=== PATIENT | male | born 1950 | race American Indian/Alaskan Native ===

== ENCOUNTER 2018-01-18 16:10 | Emergency (ER) | payer SELFPAY ==
[2018-01-18 18:54] LABS: Basophils % (Auto) 0.3 % (0.0-1.8); Eosinophils # (Auto) 0.2 K/mm3 (0.0-0.4); Hemoglobin 11.7 gm/dl (11.8-15.2); Lymphocytes # (Auto) 1.5 K/mm3 (1.2-5.4); Lymphocytes % (Auto) 18.7 % (13.4-35.0); Mean Corpuscular HGB Conc 33 % (32-34); Mean Corpuscular Hemoglobin 31 pg (28-32); Mean Corpuscular Volume 92 fl (84-94); Monocytes # (Auto) 0.7 K/mm3 (0.0-0.8); Monocytes % (Auto) 8.9 % (0.0-7.3); Platelet Count 264 K/mm3 (140-440); Red Blood Count 3.83 M/mm3 (3.65-5.03); Red Cell Distribution Width 13.7 % (13.2-15.2)
[2018-01-18 19:09] LABS: BUN/Creatinine Ratio 13; Blood Urea Nitrogen 9 mg/dL (9-20); Calcium 8.9 mg/dL (8.4-10.2); Hemolysis Index 13
--- NOTE | 2018-01-18 19:21 | Emergency Department Report ---
ED General Adult HPI - General Chief complaint: Psych Stated complaint: AMS Time Seen by Provider: 01/18/18 19:14 Source: patient, EMS Mode of arrival: Ambulatory Limitations: No Limitations - History of Present Illness Initial comments: The patient presents from a personal long term for psychiatric evaluation. Per the staff at the personal long term the patient refuses to take his medications. Patient denies psychiatric history although he is on antipsychotic medication. Patient denies homicidal or suicidal ideation. Patient also denies auditory or visual hallucinations. -: Gradual Radiation: other (not applicable) Quality: other (not applicable) Consistency: other (not applicable) Worsens with: other (not applicable) Treatments Prior to Arrival: none - Related Data Allergies Allergy/AdvReac Type Severity Reaction Status Date / Time haloperidol [From Haldol] Allergy Unknown Verified 01/18/18 17:03 mustard Allergy Unknown Verified 01/18/18 17:03 risperidone [From Risperdal] Allergy Unknown Verified 01/18/18 17:03 ED Review of Systems ROS: Stated complaint: AMS Other details as noted in HPI Constitutional: denies: chills, fever Eyes: denies: eye pain, eye discharge, vision change ENT: denies: ear pain, throat pain Respiratory: denies: cough, shortness of breath, wheezing Cardiovascular: denies: chest pain, palpitations Endocrine: no symptoms reported Gastrointestinal: denies: abdominal pain, nausea, diarrhea Genitourinary: denies: urgency, dysuria Musculoskeletal: denies: back pain, joint swelling, arthralgia Skin: denies: rash, lesions Neurological: denies: headache, weakness, paresthesias Psychiatric: denies: anxiety, depression Hematological/Lymphatic: denies: easy bleeding, easy bruising ED Past Medical Hx - Past Medical History Previous Medical History?: Yes Hx Psychiatric Treatment: Yes - Surgical History Past Surgical History?: No - Social History Smoking Status: Never Smoker ED Physical Exam - General Limitations: No Limitations General appearance: alert, in no apparent distress - Head Head exam: Present: atraumatic, normocephalic - Eye Eye exam: Present: normal appearance - ENT ENT exam: Present: mucous membranes moist - Neck Neck exam: Present: normal inspection - Respiratory Respiratory exam: Present: normal lung sounds bilaterally. Absent: respiratory distress - Cardiovascular Cardiovascular Exam: Present: regular rate, normal rhythm. Absent: systolic murmur, diastolic murmur, rubs, gallop - GI/Abdominal GI/Abdominal exam: Present: soft, normal bowel sounds. Absent: distended, tenderness - Rectal Rectal exam: Present: deferred - Extremities Exam Extremities exam: Present: normal inspection - Back Exam Back exam: Present: normal inspection - Neurological Exam Neurological exam: Present: alert, oriented X3 - Psychiatric Psychiatric exam: Present: normal affect, normal mood - Skin Skin exam: Present: warm, dry, intact, normal color. Absent: rash ED Course Vital Signs 01/18/18 01/18/18 17:04 20:41 Temperature 97.8 F 98.5 F Pulse Rate 74 77 Respiratory 16 16 Rate Blood Pressure 156/94 Blood Pressure 168/94 [Right] O2 Sat by Pulse 100 98 Oximetry ED Medical Decision Making - Lab Data Result diagrams: 01/18/18 18:44 01/18/18 18:44 - Medical Decision Making Psychiatric evaluation done and patient will be referred to [facility] Critical care attestation.: If time is entered above; I have spent that time in minutes in the direct care of this critically ill patient, excluding procedure time. ED Disposition Clinical Impression: Psychosis Disposition: DC/TX-70 ANOTHER TYPE [facility]THCARE Is pt being admited?: No Does the pt Need Aspirin: No Condition: Stable Referrals: PRIMARY CARE, [Primary Care Provider] - 3-5 Days Time of Disposition: 02:48
--- NOTE | 2018-01-20 11:15 | Consultation ---
History of Present Illness - Reason for Consult Consult date: 01/20/18 Reason for consult: Mental Health Evaluation Requesting physician: JUDD RICHARDSON - Chief Complaint Chief complaint: 'There's feces in my food" - History of Present Psychiatric Illness 68 y.o. AA male presenting to the ER from his personal [facility] because he refuses to take his medication. Today the patient is calm, but tangent, delusional, disorganized, and paranoid during the assessment. He is adamant that he does not need psy medication. He stated "feces" being in his food and fear something may happen to him for some reason. He stated, "I will try my best to eat my meals." He could not logically explain what may happen to him when asked. The patient had to be redirected several time to keep him on topic. The patient is a poor historian at this time. Medications and Allergies Allergies Allergy/AdvReac Type Severity Reaction Status Date / Time haloperidol [From Haldol] Allergy Unknown Verified 01/18/18 17:03 mustard Allergy Unknown Verified 01/18/18 17:03 risperidone [From Risperdal] Allergy Unknown Verified 01/18/18 17:03 Home Medications Medication Instructions Recorded Confirmed Last Taken Type Unobtainable 01/19/18 01/19/18 Unknown History Past psychiatric history - Past Medical History Past Medical History: No medical history Past Surgical History: No surgical history - past Psychiatric treatment and history psychiatric treatment history: 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 He cannot confirm or deny a fam psy. - Social History Social history: other (Reside at a half-way) Mental Status Exam - Vital signs Last Vital Signs Temp 98.7 F 01/19/18 21:00 Pulse 87 01/19/18 21:00 Resp 18 01/19/18 21:00 BP 128/70 01/19/18 21:00 Pulse Ox 96 01/19/18 21:00 - Exam Narrative exam: MSE: Appearance: calm Behavior: regular eye contact Speech: regular rate and tone Mood: "okay" Affect: normal Thought Process: disorganized, tangential Thought Content: denies SI/HI's and AVH's, delusional, paranoid Motor Activity: ambulatory Cognition: A/O x 3 Insight: poor Judgment: poor Results Result Diagrams: 01/18/18 18:44 01/18/18 18:44 All other labs normal. Assessment and Plan Assessment and plan: Impression: Unspecified Psychosis. Today the patient is calm, but tangent, delusional, disorganized, and paranoid during the assessment. UDS has not been collected. DDx: Schizophrenia Paranoid Type, R/O Bipolar DO Recommendation/Plan: Continue 1013 with placement to inpatient psy services. Start Zyprexa Zydis 5 mg PO HS for psychosis. Discussed possible metabolic side effects of Zyprexa with patient. Encourage patient to eat his meals.
[2018-01-20 11:46] LABS: Bacteria,Urine 1+ /HPF (Negative); Bilirubin,Urine NEG (Negative); Blood,Urine NEG (Negative); Color,Urine Yellow (Yellow); Mucus,Urine 1+ /HPF; Urobilinogen,Urine < 2.0 mg/dL (<2.0)
[2018-01-20 11:56] LABS: Amphetamine Screen,Urine PRESUMPTIVE NEGATIVE; Benzodiazepines Screen,Urine PRESUMPTIVE NEGATIVE; Cannabinoid Screen,Urine PRESUMPTIVE NEGATIVE; Cocaine Screen,Urine PRESUMPTIVE NEGATIVE; Methadone Screen,Urine PRESUMPTIVE NEGATIVE; Opiate Screen,Urine PRESUMPTIVE NEGATIVE
--- NOTE | 2018-01-21 12:14 | Progress Note ---
Subjective - Reason for Consult Consult date: 01/21/18 Reason for consult: Psychiatry Follow-up - Chief Complaint Chief complaint: "Hi" 68 y.o. AA male presenting to the ER from his personal halfway because he refuses to take his medication. Today the patient is calm and cooperative during the assessment. He stated that he didn't eat his dinner, but ate his breakfast this morning. The patient is drinking fluids. He would not confirm or deny that there's feces still in his food when asked. He denies SI/HI's and AVH' s. No indications of side effects of his medications. Mental Status Exam - Vital signs Last Vital Signs Temp 98.3 F 01/20/18 20:49 Pulse 79 01/20/18 20:49 Resp 18 01/20/18 20:49 BP 126/60 01/20/18 20:49 Pulse Ox 98 01/20/18 13:34 - Exam Narrative exam: MSE: Appearance: calm, cooperative Behavior: regular eye contact Speech: regular rate and tone, hyper verbal Mood: "okay" Affect: normal Thought Process: tangential Thought Content: denies SI/HI's and AVH's, delusional, paranoid Motor Activity: ambulatory Cognition: A/O x 3 Insight: poor Judgment: poor Assessment and Plan Impression: Unspecified Psychosis. Today the patient is calm, but tangent, delusional, disorganized, and paranoid during the assessment. UDS is negative. DDx: Schizophrenia Paranoid Type, R/O Bipolar DO Recommendation/Plan: Continue 1013 with placement to inpatient psy services. Continue Zyprexa Zydis 5 mg PO HS for psychosis. Discussed possible metabolic side effects of Zyprexa with patient. Encourage patient to eat his meals.
[2018-01-22 09:14] VITALS: BP 132/83
== END 2018-01-22 19:58 | disposition other institution (70) ==
LOC: ED 16:10 → EEVIPCON 16:10 → ED 01-22 19:58
DX: F29 Unspecified psychosis not due to a substance or known physiological condition (principal); Z79.899 Other long term (current) drug therapy
CPT/HCPCS: 36415; 80048; 80307; 81001; 85025; 99285; G0480; 80320

== ENCOUNTER 2022-01-22 16:39 | Emergency (ER) | payer MEDICARE ==
[2022-01-22] MEDS ORDERED: ZIPRASIDONE MESYLATE 20 MG VIAL IM ONE (17:14)
[2022-01-22] MEDS ORDERED: diphenhydrAMINE 50 MG/ML VIAL IM ONE (17:14)
--- NOTE | 2022-01-22 17:19 | Emergency Department Report ---
ED Psych HPI - General Chief Complaint: Altered Mental Status Stated Complaint: AMS Time Seen by Provider: 01/22/22 17:10 Source: EMS Mode of arrival: Stretcher Limitations: Other - History of Present Illness Initial Comments: 72-year-old male with a past medical history of dementia and schizophrenia presents from [facility] for episode of aggression and combativeness as per staff. Patient is sleepy during my evaluation. In attempt to examine him he becomes aggressive. He is not speaking or answering questions. IM medications ordered for patient and staff safety. Med list not available for review. As per medical record patient was last seen in 2018 with a similar presentation - Related Data Home Medications Medication Instructions Recorded Confirmed Last Taken Benztropine [Cogentin] 1 mg PO BID 01/21/18 01/21/18 Unknown Cholecalciferol (Vitamin D3) 3,000 unit PO BID 01/21/18 01/21/18 Unknown [Vitamin D3 3,000 unit] Docusate Sodium [Colace CAP] 100 mg PO BID 01/21/18 01/21/18 Unknown Ferrous Sulfate [Iron 325 MG] 325 mg PO DAILY 01/21/18 01/21/18 Unknown [place] Carbonate [Eskalith] 450 mg PO QHS 01/21/18 01/21/18 Unknown OLANZapine [Zyprexa] 20 mg PO BID 01/21/18 01/21/18 Unknown Psyllium Seed (with Sugar) 3.4 gm PO DAILY 01/21/18 01/21/18 Unknown [Metamucil] Thiamine [Vitamin B-1] 100 mg PO DAILY 01/21/18 01/21/18 Unknown fluPHENAZine HCl [Prolixin] 20 mg PO QHS 01/21/18 01/21/18 Unknown fluPHENAZine decanoate (NF) 50 mg IM QWEEK 01/21/18 01/21/18 Unknown [Prolixin Decanoate] Allergies Allergy/AdvReac Type Severity Reaction Status Date / Time haloperidol [From Haldol] Allergy Unknown Verified 01/22/22 16:42 mustard Allergy Unknown Verified 01/22/22 16:42 risperidone [From Risperdal] Allergy Unknown Verified 01/22/22 16:42 ED Review of Systems ROS: Stated complaint: AMS Other details as noted in HPI Comment: All other systems reviewed and negative ED Past Medical Hx - Past Medical History Hx Psychiatric Treatment: Yes - Social History Smoking Status: Never Smoker - Medications Home Medications: Home Medications Medication Instructions Recorded Confirmed Last Taken Type Benztropine [Cogentin] 1 mg PO BID 01/21/18 01/21/18 Unknown History Cholecalciferol (Vitamin D3) 3,000 unit PO BID 01/21/18 01/21/18 Unknown History [Vitamin D3 3,000 unit] Docusate Sodium [Colace CAP] 100 mg PO BID 01/21/18 01/21/18 Unknown History Ferrous Sulfate [Iron 325 MG] 325 mg PO DAILY 01/21/18 01/21/18 Unknown History [place] Carbonate [Eskalith] 450 mg PO QHS 01/21/18 01/21/18 Unknown History OLANZapine [Zyprexa] 20 mg PO BID 01/21/18 01/21/18 Unknown History Psyllium Seed (with Sugar) 3.4 gm PO DAILY 01/21/18 01/21/18 Unknown History [Metamucil] Thiamine [Vitamin B-1] 100 mg PO DAILY 01/21/18 01/21/18 Unknown History fluPHENAZine HCl [Prolixin] 20 mg PO QHS 01/21/18 01/21/18 Unknown History fluPHENAZine decanoate (NF) 50 mg IM QWEEK 01/21/18 01/21/18 Unknown History [Prolixin Decanoate] ED Physical Exam - General Limitations: Altered Mental Status - Other Other exam information: General: No acute distress Head: Atraumatic Eyes: normal appearance ENT: Moist mucous membranes Neck: Normal appearance, no midline tenderness Chest: Clear to auscultation bilaterally CV: Regular rate and rhythm Abdomen: Soft, normal bowel sounds, nontender, nondistended, no rebound or guarding Back: Normal inspection Extremity: Normal inspection, full range of motion Neuro: Alert, does not follow questions, aggressive, moves all extremities equally Psych: resting, uncooperative when disturbed Skin: No rash ED Course Vital Signs 01/22/22 01/22/22 01/22/22 18:34 18:40 18:42 Pulse Rate 87 Respiratory 18 17 Rate Blood Pressure 148/82 [Left] O2 Sat by Pulse 100 98 98 Oximetry 01/22/22 19:54 Pulse Rate 82 Respiratory 18 Rate Blood Pressure 164/98 [Left] O2 Sat by Pulse 98 Oximetry - Reevaluation(s) Reevaluation #1: 01/22/22 21:43 pt is more cooperative now and agreeable to getting temp done ED Medical Decision Making - Lab Data Result diagrams: 01/22/22 19:40 01/22/22 19:40 Lab Results 01/22/22 01/22/22 01/22/22 Range/Units 19:40 19:40 19:40 WBC 6.0 (4.5-11.0) K/mm3 RBC 4.24 (3.65-5.03) M/mm3 Hgb 12.1 (11.8-15.2) gm/dl Hct 37.6 (35.5-45.6) % MCV 89 (84-94) fl MCH 29 (28-32) pg MCHC 32 (32-34) % RDW 15.5 H (13.2-15.2) % Plt Count 156 (140-440) K/mm3 Lymph % (Auto) 35.5 H (13.4-35.0) % [place] % (Auto) 11.0 H (0.0-7.3) % Eos % (Auto) 2.4 (0.0-4.3) % Baso % (Auto) 0.5 (0.0-1.8) % Lymph # (Auto) 2.1 (1.2-5.4) K/mm3 [place] # (Auto) 0.7 (0.0-0.8) K/mm3 Eos # (Auto) 0.1 (0.0-0.4) K/mm3 Baso # (Auto) 0.0 (0.0-0.1) K/mm3 Seg Neutrophils % 50.6 (40.0-70.0) % Seg Neutrophils # 3.1 (1.8-7.7) K/mm3 Sodium 138 (137-145) mmol/L Potassium 4.5 (3.6-5.0) mmol/L Chloride 102.4 (98-107) mmol/L Carbon Dioxide 24 (22-30) mmol/L Anion Gap 16 mmol/L BUN 16 (9-20) mg/dL Creatinine 0.9 (0.8-1.3) mg/dL Estimated GFR > 60 ml/min BUN/Creatinine Ratio 18 % Glucose 86 (75-100) mg/dL Calcium 9.5 (8.4-10.2) mg/dL Urine Color (Yellow) Urine Turbidity (Clear) Urine pH (5.0-7.0) Ur Specific [place] (1.003-1.030) Urine Protein (Negative) mg/dL Urine Glucose (UA) (Negative) mg/dL Urine Ketones (Negative) mg/dL Urine Blood (Negative) Urine Nitrite (Negative) Urine Bilirubin (Negative) Urine Urobilinogen (<2.0) mg/dL Ur Leukocyte Esterase (Negative) Urine WBC (Auto) (0.0-6.0) /HPF Urine RBC (Auto) (0.0-6.0) /HPF Urine Mucus /HPF Salicylates < 0.3 L (2.8-20.0) mg/dL Urine Opiates Screen Urine Methadone Screen Acetaminophen (10.0-30.0) ug/mL Ur Barbiturates Screen Ur Phencyclidine Scrn Ur Amphetamines Screen U Benzodiazepines Scrn [place] 0.1 (0.0-1.2) mmol/L Urine Cocaine Screen U Marijuana (THC) Screen Drugs of Abuse Note Plasma/Serum Alcohol (0-0.07) % 01/22/22 01/22/22 01/22/22 Range/Units 19:40 19:40 19:55 WBC (4.5-11.0) K/mm3 RBC (3.65-5.03) M/mm3 Hgb (11.8-15.2) gm/dl Hct (35.5-45.6) % MCV (84-94) fl MCH (28-32) pg MCHC (32-34) % RDW (13.2-15.2) % Plt Count (140-440) K/mm3 Lymph % (Auto) (13.4-35.0) % [place] % (Auto) (0.0-7.3) % Eos % (Auto) (0.0-4.3) % Baso % (Auto) (0.0-1.8) % Lymph # (Auto) (1.2-5.4) K/mm3 [place] # (Auto) (0.0-0.8) K/mm3 Eos # (Auto) (0.0-0.4) K/mm3 Baso # (Auto) (0.0-0.1) K/mm3 Seg Neutrophils % (40.0-70.0) % Seg Neutrophils # (1.8-7.7) K/mm3 Sodium (137-145) mmol/L Potassium (3.6-5.0) mmol/L Chloride (98-107) mmol/L Carbon Dioxide (22-30) mmol/L Anion Gap mmol/L BUN (9-20) mg/dL Creatinine (0.8-1.3) mg/dL Estimated GFR ml/min BUN/Creatinine Ratio % Glucose (75-100) mg/dL Calcium (8.4-10.2) mg/dL Urine Color Straw (Yellow) Urine Turbidity Clear (Clear) Urine pH 6.0 (5.0-7.0) Ur Specific [place] 1.010 (1.003-1.030) Urine Protein <15 mg/dl (Negative) mg/dL Urine Glucose (UA) Neg (Negative) mg/dL Urine Ketones Neg (Negative) mg/dL Urine Blood Neg (Negative) Urine Nitrite Neg (Negative) Urine Bilirubin Neg (Negative) Urine Urobilinogen < 2.0 (<2.0) mg/dL Ur Leukocyte Esterase Neg (Negative) Urine WBC (Auto) < 1.0 (0.0-6.0) /HPF Urine RBC (Auto) 1.0 (0.0-6.0) /HPF Urine Mucus Few /HPF Salicylates (2.8-20.0) mg/dL Urine Opiates Screen Urine Methadone Screen Acetaminophen 5.0 L (10.0-30.0) ug/mL Ur Barbiturates Screen Ur Phencyclidine Scrn Ur Amphetamines Screen U Benzodiazepines Scrn [place] (0.0-1.2) mmol/L Urine Cocaine Screen U Marijuana (THC) Screen Drugs of Abuse Note Plasma/Serum Alcohol < 0.01 (0-0.07) % 01/22/22 Range/Units 19:55 WBC (4.5-11.0) K/mm3 RBC (3.65-5.03) M/mm3 Hgb (11.8-15.2) gm/dl Hct (35.5-45.6) % MCV (84-94) fl MCH (28-32) pg MCHC (32-34) % RDW (13.2-15.2) % Plt Count (140-440) K/mm3 Lymph % (Auto) (13.4-35.0) % [place] % (Auto) (0.0-7.3) % Eos % (Auto) (0.0-4.3) % Baso % (Auto) (0.0-1.8) % Lymph # (Auto) (1.2-5.4) K/mm3 [place] # (Auto) (0.0-0.8) K/mm3 Eos # (Auto) (0.0-0.4) K/mm3 Baso # (Auto) (0.0-0.1) K/mm3 Seg Neutrophils % (40.0-70.0) % Seg Neutrophils # (1.8-7.7) K/mm3 Sodium (137-145) mmol/L Potassium (3.6-5.0) mmol/L Chloride (98-107) mmol/L Carbon Dioxide (22-30) mmol/L Anion Gap mmol/L BUN (9-20) mg/dL Creatinine (0.8-1.3) mg/dL Estimated GFR ml/min BUN/Creatinine Ratio % Glucose (75-100) mg/dL Calcium (8.4-10.2) mg/dL Urine Color (Yellow) Urine Turbidity (Clear) Urine pH (5.0-7.0) Ur Specific [place] (1.003-1.030) Urine Protein (Negative) mg/dL Urine Glucose (UA) (Negative) mg/dL Urine Ketones (Negative) mg/dL Urine Blood (Negative) Urine Nitrite (Negative) Urine Bilirubin (Negative) Urine Urobilinogen (<2.0) mg/dL Ur Leukocyte Esterase (Negative) Urine WBC (Auto) (0.0-6.0) /HPF Urine RBC (Auto) (0.0-6.0) /HPF Urine Mucus /HPF Salicylates (2.8-20.0) mg/dL Urine Opiates Screen Presumptive negative Urine Methadone Screen Presumptive negative Acetaminophen (10.0-30.0) ug/mL Ur Barbiturates Screen Presumptive negative Ur Phencyclidine Scrn Presumptive negative Ur Amphetamines Screen Presumptive negative U Benzodiazepines Scrn Presumptive negative [place] (0.0-1.2) mmol/L Urine Cocaine Screen Presumptive negative U Marijuana (THC) Screen Presumptive negative Drugs of Abuse Note Disclamer Plasma/Serum Alcohol (0-0.07) % - Medical Decision Making 72-year-old male with dementia and schizophrenia presents to the hospital with aggressive behavior. Labs, urine, and vital signs unremarkable. Patient required Geodon and Benadryl in the ED for cooperation. Patient will require mental health evaluation for possible [facility] psychiatric admission Critical Care Time: No Critical care attestation.: If time is entered above; I have spent that time in minutes in the direct care of this critically ill patient, excluding procedure time. ED Disposition Clinical Impression: Dementia, Schizophrenia, Aggressive behavior Disposition: [address] [place] [address] Is pt being admited?: No Condition: Stable
[2022-01-22 20:13] LABS: Basophils % (Auto) 0.5 % (0.0-1.8); Eosinophils # (Auto) 0.1 K/mm3 (0.0-0.4); Eosinophils % (Auto) 2.4 % (0.0-4.3); Hematocrit 37.6 % (35.5-45.6); Hemoglobin 12.1 gm/dl (11.8-15.2); Lymphocytes # (Auto) 2.1 K/mm3 (1.2-5.4); Lymphocytes % (Auto) 35.5 % (13.4-35.0); Mean Corpuscular HGB Conc 32 % (32-34); Mean Corpuscular Volume 89 fl (84-94); Monocytes # (Auto) 0.7 K/mm3 (0.0-0.8); Platelet Count 156 K/mm3 (140-440); Red Blood Count 4.24 M/mm3 (3.65-5.03); Red Cell Distribution Width 15.5 % (13.2-15.2)
[2022-01-22 20:26] LABS: BUN/Creatinine Ratio 18; Blood Urea Nitrogen 16 mg/dL (9-20); Calcium 9.5 mg/dL (8.4-10.2); Hemolysis Index 23
[2022-01-22 20:33] LABS: Bilirubin,Urine NEG (Negative); Blood,Urine NEG (Negative); Color,Urine Straw (Yellow); Mucus,Urine FEW /HPF; Protein,Urine <15 mg/dL mg/dL (Negative); Urobilinogen,Urine < 2.0 mg/dL (<2.0); WBC,Urine < 1.0 /HPF (0.0-6.0)
[2022-01-22 20:45] LABS: Amphetamine Screen,Urine PRESUMPTIVE NEGATIVE; Benzodiazepines Screen,Urine PRESUMPTIVE NEGATIVE; Cannabinoid Screen,Urine PRESUMPTIVE NEGATIVE; Cocaine Screen,Urine PRESUMPTIVE NEGATIVE; Methadone Screen,Urine PRESUMPTIVE NEGATIVE; Opiate Screen,Urine PRESUMPTIVE NEGATIVE
--- NOTE | 2022-01-23 09:07 | Consultation ---
History of Present Illness - Reason for Consult Consult date: 01/23/22 Reason for consult: agitation - History of Present Psychiatric Illness HPI: 72-year-old male with a past medical history of dementia and schizophrenia presents from [facility] for episode of aggression and combativeness as per staff. Patient is sleepy during my evaluation. In attempt to examine him he becomes aggressive. He is not speaking or answering questions. IM medications ordered for patient and staff safety. Med list not available for review. As per medical record patient was last seen in 2018 with a similar presentation. The patient was seen today. He is confused and easily irritable. The patient is delusional. He at times is staring in one direction, and mumbling at times. He is poor historian and difficult to follow. When asked if he knew why he was brought to the hospital, the patient says he got upset because a woman kept coming in his room naked. He could not tell me where he was or the date. The patient starts talking about wanting to go home to his and kids. He then says "there are folks everywhere. They all gone have to get it from me, because I have it." Will start meds and recommend acute psychiatric inpatient treatment for this patient. PAST PSYCHIATRIC HISTORY: Unable to obtain PAST MEDICAL HISTORY: None reported or document Family Psychiatric History: None reported or documented SOCIAL HISTORY Unable to obtain REVIEW OF SYSTEMS Unable to obtain MENTAL STATUS EXAMINATION Unable to obtain Diagnoses: Schizophrenia Treatment Plan 1013 Wilson LEE 125mg po BID Olanzapine 20mg po daily Trazodone 50mg po qhs PSYCHOTHERAPY: Supportive psychotherapy provided MEDICAL: Per primary team DELIRIUM PRECAUTIONS: Please re-orient patient frequently, keep lights on during the day, and minimize benzodiazepines and opiates as these medications could worsen patient's confusion. 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 Thanks. Thank you for the consult. Case staffed with Dr. Mahoney Medications and Allergies Allergies Allergy/AdvReac Type Severity Reaction Status Date / Time haloperidol [From Haldol] Allergy Unknown Verified 01/22/22 16:42 mustard Allergy Unknown Verified 01/22/22 16:42 risperidone [From Risperdal] Allergy Unknown Verified 01/22/22 16:42 Home Medications Medication Instructions Recorded Confirmed Last Taken Type Benztropine [Cogentin] 1 mg PO BID 01/21/18 01/21/18 Unknown History Cholecalciferol (Vitamin D3) 3,000 unit PO BID 01/21/18 01/21/18 Unknown History [Vitamin D3 3,000 unit] Docusate Sodium [Colace CAP] 100 mg PO BID 01/21/18 01/21/18 Unknown History Ferrous Sulfate [Iron 325 MG] 325 mg PO DAILY 01/21/18 01/21/18 Unknown History [place] Carbonate [Eskalith] 450 mg PO QHS 01/21/18 01/21/18 Unknown History OLANZapine [Zyprexa] 20 mg PO BID 01/21/18 01/21/18 Unknown History Psyllium Seed (with Sugar) 3.4 gm PO DAILY 01/21/18 01/21/18 Unknown History [Metamucil] Thiamine [Vitamin B-1] 100 mg PO DAILY 01/21/18 01/21/18 Unknown History fluPHENAZine HCl [Prolixin] 20 mg PO QHS 01/21/18 01/21/18 Unknown History fluPHENAZine decanoate (NF) 50 mg IM QWEEK 01/21/18 01/21/18 Unknown History [Prolixin Decanoate] Mental Status Exam - Vital signs Last Vital Signs Temp 98.2 F 01/23/22 08:58 Pulse 98 H 01/23/22 08:58 Resp 20 01/23/22 08:58 BP 189/114 01/23/22 08:58 Pulse Ox 97 01/23/22 08:59 Results Result Diagrams: 01/22/22 19:40 01/22/22 19:40 Abnormal lab results 01/22/22 01/22/22 01/22/22 Range/Units 19:40 19:40 19:40 RDW 15.5 H (13.2-15.2) % Lymph % (Auto) 35.5 H (13.4-35.0) % [place] % (Auto) 11.0 H (0.0-7.3) % Salicylates < 0.3 L (2.8-20.0) mg/dL Acetaminophen 5.0 L (10.0-30.0) ug/mL All other labs normal.
[2022-01-23] MEDS ORDERED: DIVALPROEX DR 125 MG TAB PO SCH (10:00)
[2022-01-23] MEDS ORDERED: ZIPRASIDONE MESYLATE 20 MG VIAL IM PRN (10:00)
--- NOTE | 2022-01-23 12:01 | Emergency Department Report ---
Blank Doc - Documentation Documentation: S: No events reported overnight O: Vital Signs - 24 hr 01/22/22 01/22/22 01/22/22 18:34 18:40 18:42 Temperature Pulse Rate 87 Respiratory 18 17 Rate Blood Pressure 148/82 [Left] O2 Sat by Pulse 100 98 98 Oximetry 01/22/22 01/22/22 01/23/22 19:54 21:50 08:58 Temperature 97.4 F L 98.2 F Pulse Rate 82 86 98 H Respiratory 18 16 20 Rate Blood Pressure 164/98 151/100 189/114 [Left] O2 Sat by Pulse 98 98 97 Oximetry 01/23/22 08:59 Temperature Pulse Rate Respiratory Rate Blood Pressure [Left] O2 Sat by Pulse 97 Oximetry A: Schizophrenia P: 1013/awaiting inpatient psych
[2022-01-23] MEDS ORDERED: amLODIPine 5 MG TAB PO ONE (15:52)
[2022-01-23] MEDS ORDERED: traZODone 50 MG TAB PO SCH (22:00)
[2022-01-24] MEDS ORDERED: amLODIPine 5 MG TAB PO SCH (10:00)
--- NOTE | 2022-01-24 10:00 | Progress Note ---
Subjective - Reason for Consult Consult date: 01/24/22 Reason for consult: psychosis - Chief Complaint Chief complaint: The patient was seen today. He is initially avoidant and ignores me while I'm talking to him. He is still acutely psychotic. He is irritable. The patient finally says "I want to go home. I last night." He then says "we all are going to ." The patient is heard talking loudly to himself, singing and being disruptive. Will adjust medications. The patient will transfer to [facility] for further stabilization. REVIEW OF SYSTEMS Unable to obtain MENTAL STATUS EXAMINATION Unable to obtain Diagnoses: Schizophrenia Treatment Plan [address] 125mg po TID Olanzapine 20mg po daily Trazodone 50mg po qhs PSYCHOTHERAPY: Supportive psychotherapy provided MEDICAL: Per primary team DELIRIUM PRECAUTIONS: Please re-orient patient frequently, keep lights on during the day, and minimize benzodiazepines and opiates as these medications could worsen patient's confusion. 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 Thanks. Thank you for the consult. Case staffed with Dr. Mahoney Mental Status Exam - Vital signs Last Vital Signs Temp 97.8 F 01/23/22 20:03 Pulse 99 H 01/23/22 20:03 Resp 20 01/23/22 20:03 BP 140/95 01/23/22 20:03 Pulse Ox 100 01/24/22 09:19
--- NOTE | 2022-01-24 10:55 | Emergency Department Report ---
Blank Doc - Documentation Documentation: 72-year-old male with psychosis, schizophrenia, and dementia continues to exhi bit aggressive behavior in the ED requiring IM Geodon this morning. Patient has been accepted by [facility] and awaiting bed availability. Vital signs and labs reviewed.
[2022-01-24] MEDS ORDERED: DIVALPROEX DR 125 MG TAB PO SCH (14:00)
[2022-01-24 20:10] VITALS: BP 122/75
== END 2022-01-24 21:11 ==
LOC: EEVIPCON 16:39 → ED 16:39
DX: F03.90 Unspecified dementia, unspecified severity, without behavioral disturbance, psychotic disturbance, mood disturbance, and anxiety (principal); F20.9 Schizophrenia, unspecified; R45.6 Violent behavior; Z20.822 Contact with and (suspected) exposure to COVID-19
CPT/HCPCS: 36415; 80048; 80178; 80307; 81001; 85025; 96372; 99285; J1200; J3486; U0003; 80320; 99283; G0480

== ENCOUNTER 2022-01-23 15:26 | Inpatient (IN) | payer MEDICARE ==
[2022-01-24] MEDS ORDERED: ZIPRASIDONE MESYLATE 20 MG VIAL IM PRN (22:45)
[2022-01-25] MEDS ORDERED: DIVALPROEX DR 125 MG TAB PO SCH (08:00)
--- NOTE | 2022-01-25 09:29 | Consultation ---
History of Present Illness - Reason for Consult Consult date: 01/25/22 Medical management - History of Present Illness Patient is a 72-year-old male with history of schizophrenia, dementia and hypertension who was brought to the ED from his assisted living facility for aggressiveness. During interview patient was in the bed and rambling about several subjects. He reports not having any medical issues besides indigestion which he does not treat. He insists that his family wants to "steal his money, control him and kill him." He denies SI/HI. He reports his increased aggressiveness due to him being tired of his treatment. He denies headache, chest pain, shortness of breath, cough, decreased appetite and noticeable changes in weight. He does report smoking 2 packs of cigarettes daily. He does not drink alcohol but has used cocaine in the past. He does use marijuana and smokes about 5 blunts per day. Vital signs, labs and medications were reviewed. Other review of systems negative. Past History Past Medical History: hypertension Past Surgical History: No surgical history Social history: smoking Family history: no significant family history Medications and Allergies Allergies Allergy/AdvReac Type Severity Reaction Status Date / Time haloperidol [From Haldol] Allergy Unknown Verified 01/22/22 16:42 mustard Allergy Unknown Verified 01/22/22 16:42 risperidone [From Risperdal] Allergy Unknown Verified 01/22/22 16:42 Home Medications Medication Instructions Recorded Confirmed Last Taken Type Benztropine [Cogentin] 1 mg PO BID 01/21/18 01/24/22 Unknown History Docusate Sodium [Colace CAP] 100 mg PO BID 01/21/18 01/24/22 Unknown History Ferrous Sulfate [Iron 325 MG] 325 mg PO DAILY 01/21/18 01/24/22 Unknown History fluPHENAZine decanoate (NF) 50 mg IM QWEEK 01/21/18 01/24/22 Unknown History [Prolixin Decanoate] Active Meds: Active Medications Amlodipine Besylate (Amlodipine 5 Mg Tab) 5 mg PO QDAY ORLY Divalproex Sodium (Divalproex Dr 125 Mg Tab) 125 mg PO TID ORLY Olanzapine (Olanzapine 10 Mg Tab) 20 mg PO QDAY ORLY Trazodone HCl (Trazodone 50 Mg Tab) 50 mg PO QHS ORLY Ziprasidone (Ziprasidone Mesylate 20 Mg Vial) 20 mg IM Q4H PRN PRN Reason: Agitation Review of Systems All systems: negative Psychiatric: hopelessness, irritability Exam - Physical Exam Narrative exam: GENERAL: Thin male. Lying in bed in no acute distress. HEENT: Edentulous. NECK: Supple. CHEST/LUNGS: CTAB on room air HEART/CARDIOVASCULAR: RRR. No murmur, rubs or gallops appreciated. ABDOMEN: +BS. NT/ND. SKIN: No rashes noted. NEURO: No focal motor deficit. Follows all commands. MUSCULOSKELETAL: No joint effusion EXTREMITIES: No cyanosis, clubbing or edema. PSYCH: Cooperative. - Constitutional Vitals: Temp Pulse Resp BP Pulse Ox 97.4 F L 90 16 114/73 95 01/25/22 08:53 01/25/22 08:53 01/25/22 08:53 01/25/22 08:53 01/25/22 08:53 Assessment and Plan 72-year-old male with history of hypertension, schizophrenia, dementia and tobacco dependence who was admitted for [facility] treatment. #Hypertension -elevated BP per chart review -takes amlodipine 5mg qday at home, will continue -goal SBP <160 while inpatient #Tobacco dependence -Patient smokes about 2 packs/day -Smoking cessation counseling, supportive care, behavior change counseling, +15 minutes. -Not interested in cessation at this time -Will start nicotine patch while inpatient #Schizophrenia -Management per primary Thank you for this consult. We will continue to follow along. Please call with any questions or concerns.
--- NOTE | 2022-01-25 09:37 | History and Physical Report ---
GP History & Physical - History of Present Illness Date of admission: 01/24/22 Date of Examination: 01/25/22 Reason for Admission: Danger to self, Failure of Outpatient Treatment, Severe anxiety/depression History of Present Illness: HPI: 72-year-old male with a past medical history of dementia and schizophrenia presents from [facility] assisted living for episode of aggression and combativeness as per staff. Patient is sleepy during my evaluation. In attempt to examine him he becomes aggressive. He is not speaking or answering questions. IM medications ordered for patient and staff safety. Med list not available for review. As per medical record patient was last seen in 2018 with a similar presentation. The patient was seen today. He is paranoid and mumbling to himself. He is also irritable. He is avoidant and walks by me quickly as I'm trying to talk with him. He says "I'm not talking today." He goes to his room. I go to the patient's room, he is lying in his bed. He sees me coming in, he closes his eyes as if he is asleep. PAST PSYCHIATRIC HISTORY: Unable to obtain PAST MEDICAL HISTORY: None reported or document Family Psychiatric History: None reported or documented SOCIAL HISTORY Unable to obtain REVIEW OF SYSTEMS Unable to obtain MENTAL STATUS EXAMINATION Unable to obtain Diagnoses: Schizophrenia Treatment Plan Patient admitted for inpatient psychiatric evaluation, medication adjustment and close monitoring The patient's behavior, mood, sleep and appetite will be closely monitored. Patient enrolled in individual and group therapeutic sessions and encouraged to attend. Patient provided with a safe and structured environment. Patient's physical health needs will be addressed by the Hospitalist. Hospitalist Consulted Labs including CBC, CMP, Lipid profile and Hemoglobin A1C levels ordered for baseline reference Social Assessment will be completed and the Pharmacist Critical Care will work with patient and family to ensure a suitable and safe disposition Medication adjustment will be made as clinically indicated Increase Depakote DR 250mg po BID Usual Wellness Gnosticist/Preservation: - Start Trazodone 50 mg po QHS & 50 mg po QHS PRN between 10 PM & 2 AM for inso mnia - Start Melatonin 5 mg po QHS to promote circadian rhythm The patient agreed on the treatment plan, understood the risk, benefit, alternative treatment, potential consequence of no treatment, and gave informed consent. Estimated days: 7 Post hospital care: primary care provider, psychiatric provider Case staffed with Dr. Mahoney Legal Status: Voluntary Reaction to Hospitalization: Accepting Medications and Allergies Allergies Allergy/AdvReac Type Severity Reaction Status Date / Time haloperidol [From Haldol] Allergy Unknown Verified 01/22/22 16:42 mustard Allergy Unknown Verified 01/22/22 16:42 risperidone [From Risperdal] Allergy Unknown Verified 01/22/22 16:42 Home Medications Medication Instructions Recorded Confirmed Last Taken Type Benztropine [Cogentin] 1 mg PO BID 01/21/18 01/24/22 Unknown History Docusate Sodium [Colace CAP] 100 mg PO BID 01/21/18 01/24/22 Unknown History Ferrous Sulfate [Iron 325 MG] 325 mg PO DAILY 01/21/18 01/24/22 Unknown History fluPHENAZine decanoate (NF) 50 mg IM QWEEK 01/21/18 01/24/22 Unknown History [Prolixin Decanoate] Active Meds: Active Medications Amlodipine Besylate (Amlodipine 5 Mg Tab) 5 mg PO QDAY ORLY Divalproex Sodium (Divalproex Dr 125 Mg Tab) 125 mg PO TID ORLY Olanzapine (Olanzapine 10 Mg Tab) 20 mg PO QDAY ORLY Trazodone HCl (Trazodone 50 Mg Tab) 50 mg PO QHS ORLY Ziprasidone (Ziprasidone Mesylate 20 Mg Vial) 20 mg IM Q4H PRN PRN Reason: Agitation Results - Results Labs/Vitals: Last Vital Signs Temp 97.4 F L 01/25/22 08:53 Pulse 90 01/25/22 08:53 Resp 16 01/25/22 08:53 BP 114/73 01/25/22 08:53 Pulse Ox 95 01/25/22 08:53 Physical Examination - Constitutional Vitals: Vital Signs Temp Pulse Resp BP Pulse Ox 97.4 F L 90 16 114/73 95 01/25/22 08:53 01/25/22 08:53 01/25/22 08:53 01/25/22 08:53 01/25/22 08:53 Temperature -Last 24 Hours Temperature 97.4 F Temperature 97.4 F Mental Status Exam - Vital signs Last Vital Signs Temp 97.4 F L 01/25/22 08:53 Pulse 90 01/25/22 08:53 Resp 16 01/25/22 08:53 BP 114/73 01/25/22 08:53 Pulse Ox 95 01/25/22 08:53 Physician Certification - Certification Statement Physician Certification Statement: This is an acknowledgement statement that MARGARET REED is a 72 year old M who requires inpatient psychiatric admission for treatment which could reasonably be expected to improve the patient's condition for Estimated period of time patient will need to remain in the hospital: [ ] Plan for post-hospital care: [ ]
[2022-01-25] MEDS: amLODIPine 5 MG TAB PO SCH (09:59)
[2022-01-25] MEDS: DIVALPROEX DR 250 MG TAB PO SCH ×2 (11:11→21:18)
[2022-01-25 14:34] LABS: Chol/HDL Ratio 2.29 %
[2022-01-25] MEDS: traZODone 50 MG TAB PO SCH (21:19)
--- NOTE | 2022-01-26 07:52 | Progress Note ---
Assessment and Plan Assessment and plan: 72-year-old male with history of hypertension, schizophrenia, dementia and tobacco dependence who was admitted for [facility] treatment. #Hypertension -BP at goal per chart review -continue amlodipine 5mg qday -goal SBP <160 while inpatient #Tobacco dependence -Patient smokes about 2 packs/day -Smoking cessation counseling, supportive care, behavior change counseling, +15 minutes. -Not interested in cessation at this time; declined nicotine patch will discontinue #Schizophrenia -Management per primary Thank you for this consult. We will continue to follow along. Please call with any questions or concerns. History Interval history: No acute events overnight. Patient eager to leave. Has no complaints at this time. Would prefer not to take any medications and would like "natural" medications. Hospitalist Physical - Physical exam Narrative exam: GENERAL: Thin elderly male. Standing in no acute distress. HEENT: Edentulous. CHEST/LUNGS: CTAB on room air HEART/CARDIOVASCULAR: RRR. No murmur, rubs or gallops appreciated. ABDOMEN: +BS. NT/ND. NEURO: No focal motor deficit. Follows all commands. EXTREMITIES: No cyanosis, clubbing or edema. PSYCH: Cooperative. Pressured speech. - Constitutional Vitals: Temp Pulse Resp BP Pulse Ox 98.3 F 89 16 133/81 98 01/25/22 20:00 01/25/22 20:00 01/25/22 20:00 01/25/22 20:00 01/25/22 20:00 Results - Labs Labs: Laboratory Last Values Hemoglobin A1c 5.5 % (4-6) 01/25/22 13:31 Triglycerides 63 mg/dL (2-149) 01/25/22 13:31 Cholesterol 165 mg/dL (50-199) 01/25/22 13:31 LDL Cholesterol Direct 88 mg/dL (50-130) 01/25/22 13:31 HDL Cholesterol 72 mg/dL (40-59) H 01/25/22 13:31 Cholesterol/HDL Ratio 2.29 % 01/25/22 13:31 Valproic Acid < 2.8 ug/mL (50-100) L 01/25/22 13:31 [place]/IV: Voiding Method Toilet Active Medications - Current Medications Current Medications: Generic Name Dose Route Start Last Admin Trade Name Freq PRN Reason Stop Dose Admin Amlodipine Besylate 5 mg 01/25/22 10:00 01/25/22 09:59 Amlodipine 5 Mg Tab PO Not Given QDAY ORLY Divalproex Sodium 250 mg 01/25/22 11:00 01/25/22 21:[address] 250 Mg Tab PO Not Given BID ORLY Olanzapine 20 mg 01/25/22 10:00 01/25/22 09:59 Olanzapine 10 Mg Tab PO Not Given QDAY ORLY Trazodone HCl 50 mg 01/25/22 22:00 01/25/22 21:19 Trazodone 50 Mg Tab PO Not Given QHS ORLY Ziprasidone 20 mg 01/24/22 22:45 Ziprasidone Mesylate 20 Mg Vial IM Q4H PRN Agitation
--- NOTE | 2022-01-26 08:58 | Progress Note ---
Subjective Date of service: 01/26/22 Principal diagnosis: Schizophrenia Subjective Comment: The patient was sitting on side of the bed. He does not acknowledge my presence. He ignores me as I'm speaking to him. REVIEW OF SYSTEMS Unable to obtain MENTAL STATUS EXAMINATION Unable to obtain Diagnoses: Schizophrenia Treatment Plan Patient admitted for inpatient psychiatric evaluation, medication adjustment and close monitoring The patient's behavior, mood, sleep and appetite will be closely monitored. Patient enrolled in individual and group therapeutic sessions and encouraged to attend. Patient provided with a safe and structured environment. Patient's physical health needs will be addressed by the Hospitalist. Hospitalist Consulted Labs including CBC, CMP, Lipid profile and Hemoglobin A1C levels ordered for baseline reference Social Assessment will be completed and the Hotbed Operator will work with patient and family to ensure a suitable and safe disposition Medication adjustment will be made as clinically indicated Depakote DR 250mg po BID Continued home Fluphenazine 50mg weekly Usual Wellness Amish/Preservation: - Start Trazodone 50 mg po QHS & 50 mg po QHS PRN between 10 PM & 2 AM for insomnia - Start Melatonin 5 mg po QHS to promote circadian rhythm The patient agreed on the treatment plan, understood the risk, benefit, alternative treatment, potential consequence of no treatment, and gave informed consent. Estimated days: 7 Post hospital care: primary care provider, psychiatric provider Case staffed with Dr. Mahoney Medications and Allergies Allergies Allergy/AdvReac Type Severity Reaction Status Date / Time haloperidol [From Haldol] Allergy Unknown Verified 01/22/22 16:42 mustard Allergy Unknown Verified 01/22/22 16:42 risperidone [From Risperdal] Allergy Unknown Verified 01/22/22 16:42 Home Medications Medication Instructions Recorded Confirmed Last Taken Type Benztropine [Cogentin] 1 mg PO BID 01/21/18 01/24/22 Unknown History Docusate Sodium [Colace CAP] 100 mg PO BID 01/21/18 01/24/22 Unknown History Ferrous Sulfate [Iron 325 MG] 325 mg PO DAILY 01/21/18 01/24/22 Unknown History fluPHENAZine decanoate (NF) 50 mg IM QWEEK 01/21/18 01/24/22 Unknown History [Prolixin Decanoate] Active Meds: Active Medications Amlodipine Besylate (Amlodipine 5 Mg Tab) 5 mg PO QDAY ORLY Last Admin: 01/25/22 09:59 Dose: Not Given Divalproex Sodium (Divalproex Dr 250 Mg Tab) 250 mg PO BID [facility] Last Admin: 01/25/22 21:18 Dose: Not Given Nicotine (Nicotine 21 Mg/24 Hr Patch) 21 mg TD QDAY [facility] Olanzapine (Olanzapine 10 Mg Tab) 20 mg PO QDAY [facility] Last Admin: 01/25/22 09:59 Dose: Not Given Trazodone HCl (Trazodone 50 Mg Tab) 50 mg PO QHS [facility] Last Admin: 01/25/22 21:19 Dose: Not Given Ziprasidone (Ziprasidone Mesylate 20 Mg Vial) 20 mg IM Q4H PRN PRN Reason: Agitation Results - Results Labs/Vitals: Laboratory Last Values Hemoglobin A1c 5.5 % (4-6) 01/25/22 13:31 Triglycerides 63 mg/dL (2-149) 01/25/22 13:31 Cholesterol 165 mg/dL (50-199) 01/25/22 13:31 LDL Cholesterol Direct 88 mg/dL (50-130) 01/25/22 13:31 HDL Cholesterol 72 mg/dL (40-59) H 01/25/22 13:31 Cholesterol/HDL Ratio 2.29 % 01/25/22 13:31 Valproic Acid < 2.8 ug/mL (50-100) L 01/25/22 13:31 Last Vital Signs Temp 98.3 F 01/25/22 20:00 Pulse 89 01/25/22 20:00 Resp 16 01/25/22 20:00 BP 133/81 01/25/22 20:00 Pulse Ox 98 01/25/22 20:00
[2022-01-26] MEDS ORDERED: FLUPHENAZINE DECANOATE 25 MG/ML IM SCH (09:00)
[2022-01-26] MEDS ORDERED: NICOTINE 21 MG/24 HR PATCH TD SCH (10:00)
[2022-01-26] MEDS: DIVALPROEX DR 250 MG TAB PO SCH ×3 (11:15→23:05)
[2022-01-26] MEDS: amLODIPine 5 MG TAB PO SCH (11:15)
[2022-01-26] MEDS: traZODone 50 MG TAB PO SCH ×2 (21:20→23:05)
--- NOTE | 2022-01-27 09:29 | Progress Note ---
Subjective Date of service: 01/27/22 Principal diagnosis: Schizophrenia Subjective Comment: 01/27: The patient was seen this morning. The patient is calm and oriented x1; he gestures with his hand. He states sleep was good but states he watches what he eats " Yazdanism; I have hand cuffs, can you see it, I don't want to kill anybody." When asked what the voices was saying, he states " how is my son in- law and my daughter." The patient presents with disorganized thoughts and responding to internal stimuli. The patient is on Prolixin Dec 50mg IM weekly non formulary here replaced with Zyprexa 20mg po daily. Continued Cogentin 1mg po BID. 01/26: The patient was sitting on side of the bed. He does not acknowledge my presence. He ignores me as I'm speaking to him. REVIEW OF SYSTEMS Unable to obtain MENTAL STATUS EXAMINATION Unable to obtain Diagnoses: Schizophrenia Treatment Plan Patient admitted for inpatient psychiatric evaluation, medication adjustment and close monitoring The patient's behavior, mood, sleep and appetite will be closely monitored. Patient enrolled in individual and group therapeutic sessions and encouraged to attend. Patient provided with a safe and structured environment. Patient's physical health needs will be addressed by the Hospitalist. Hospitalist Consulted Labs including CBC, CMP, Lipid profile and Hemoglobin A1C levels ordered for baseline reference Social Assessment will be completed and the Drywall Installer will work with patient and family to ensure a suitable and safe disposition Medication adjustment will be made as clinically indicated Depakote DR 250mg po BID Continued home Fluphenazine 50mg weekly Usual Wellness Shinto/Preservation: - Start Trazodone 50 mg po QHS & 50 mg po QHS PRN between 10 PM & 2 AM for insomnia - Start Melatonin 5 mg po QHS to promote circadian rhythm The patient agreed on the treatment plan, understood the risk, benefit, alternative treatment, potential consequence of no treatment, and gave informed consent. Estimated days: 3 Post hospital care: primary care provider, psychiatric provider Case staffed with Dr. Mahoney Medications and Allergies Medications and Allergies Allergies Allergy/AdvReac Type Severity Reaction Status Date / Time haloperidol [From Haldol] Allergy Unknown Verified 01/22/22 16:42 mustard Allergy Unknown Verified 01/22/22 16:42 risperidone [From Risperdal] Allergy Unknown Verified 01/22/22 16:42 Home Medications Medication Instructions Recorded Confirmed Last Taken Type Benztropine [Cogentin] 1 mg PO BID 01/21/18 01/24/22 Unknown History Docusate Sodium [Colace CAP] 100 mg PO BID 01/21/18 01/24/22 Unknown History Ferrous Sulfate [Iron 325 MG] 325 mg PO DAILY 01/21/18 01/24/22 Unknown History fluPHENAZine decanoate (NF) 50 mg IM QWEEK 01/21/18 01/24/22 Unknown History [Prolixin Decanoate] Active Meds: Active Medications Amlodipine Besylate (Amlodipine 5 Mg Tab) 5 mg PO QDAY [facility] Last Admin: 01/26/22 11:15 Dose: Not Given Divalproex Sodium (Divalproex Dr 250 Mg Tab) 250 mg PO BID [facility] Last Admin: 01/26/22 23:05 Dose: Not Given Miscellaneous Medication (Fluphenazine Decanoate (Nf)) 50 mg IM QWEEK [facility] Olanzapine (Olanzapine 10 Mg Tab) 20 mg PO QDAY [facility] Last Admin: 01/26/22 11:16 Dose: Not Given Trazodone HCl (Trazodone 50 Mg Tab) 50 mg PO QHS [facility] Last Admin: 01/26/22 23:05 Dose: Not Given Ziprasidone (Ziprasidone Mesylate 20 Mg Vial) 20 mg IM Q4H PRN PRN Reason: Agitation Results - Results Labs/Vitals: Laboratory Last Values Hemoglobin A1c 5.5 % (4-6) 01/25/22 13:31 Triglycerides 63 mg/dL (2-149) 01/25/22 13:31 Cholesterol 165 mg/dL (50-199) 01/25/22 13:31 LDL Cholesterol Direct 88 mg/dL (50-130) 01/25/22 13:31 HDL Cholesterol 72 mg/dL (40-59) H 01/25/22 13:31 Cholesterol/HDL Ratio 2.29 % 01/25/22 13:31 Valproic Acid < 2.8 ug/mL (50-100) L 01/25/22 13:31 Last Vital Signs Temp 98.4 F 01/26/22 20:03 Pulse 76 01/26/22 20:03 Resp 17 01/26/22 20:03 BP 144/90 01/26/22 20:03 Pulse Ox 98 01/26/22 20:03
[2022-01-27] MEDS: amLODIPine 5 MG TAB PO SCH (11:00)
[2022-01-27] MEDS: BENZTROPINE 1 MG TAB PO SCH ×2 (11:00→21:18)
[2022-01-27] MEDS: DIVALPROEX DR 250 MG TAB PO SCH ×2 (11:00→21:18)
[2022-01-27] MEDS: traZODone 50 MG TAB PO SCH (21:18)
--- NOTE | 2022-01-28 08:45 | Progress Note ---
Subjective Date of service: 01/28/22 Principal diagnosis: Schizophrenia Subjective Comment: 01/28:The patient was seen this morning. He walked passed this technical writer not responding to questions. He states "If you give me a million dollars I'll tell you why I'm not talking, so have a great day." Per nurse, "pt is alert and oriented x3, calm but uncooperative with taking medication, unkempt, responses to internal stimuli, good appetite, no behavioral issue, but acts bizarre, rested well overnight, slept for approximately 8hrs." Spoke with patient's daughter Sony Duarte @ [phone] who states that [facility] @ [phone] will provide patient's Prolixin Dec 50mg IM weekly injections early next week. 01/27: The patient was seen this morning. The patient is calm and oriented x1; he gestures with his hand. He states sleep was good but states he watches what he eats " Holiness; I have hand cuffs, can you see it, I don't want to kill anybody." When asked what the voices was saying, he states " how is my son in- law and my daughter." The patient presents with disorganized thoughts and responding to internal stimuli. The patient is on Prolixin Dec 50mg IM weekly non formulary here replaced with Zyprexa 20mg po daily. Continued Cogentin 1mg po BID. 01/26: The patient was sitting on side of the bed. He does not acknowledge my presence. He ignores me as I'm speaking to him. REVIEW OF SYSTEMS Unable to obtain MENTAL STATUS EXAMINATION Unable to obtain Diagnoses: Schizophrenia Treatment Plan Patient admitted for inpatient psychiatric evaluation, medication adjustment and close monitoring The patient's behavior, mood, sleep and appetite will be closely monitored. Patient enrolled in individual and group therapeutic sessions and encouraged to attend. Patient provided with a safe and structured environment. Patient's physical health needs will be addressed by the Hospitalist. Hospitalist Consulted Labs including CBC, CMP, Lipid profile and Hemoglobin A1C levels ordered for baseline reference Social Assessment will be completed and the Apparatus Operator will work with patient and family to ensure a suitable and safe disposition Medication adjustment will be made as clinically indicated Depakote DR 250mg po BID Continued home Fluphenazine 50mg weekly Usual Wellness Sabianist/Preservation: - Start Trazodone 50 mg po QHS & 50 mg po QHS PRN between 10 PM & 2 AM for insomnia - Start Melatonin 5 mg po QHS to promote circadian rhythm The patient agreed on the treatment plan, understood the risk, benefit, alternative treatment, potential consequence of no treatment, and gave informed consent. Estimated days: 3 Post hospital care: primary care provider, psychiatric provider Case staffed with Dr. Mahoney Medications and Allergies Medications and Allergies Allergies Allergy/AdvReac Type Severity Reaction Status Date / Time haloperidol [From Haldol] Allergy Unknown Verified 01/22/22 16:42 mustard Allergy Unknown Verified 01/22/22 16:42 risperidone [From Risperdal] Allergy Unknown Verified 01/22/22 16:42 Home Medications Medication Instructions Recorded Confirmed Last Taken Type Benztropine [Cogentin] 1 mg PO BID 01/21/18 01/24/22 Unknown History Docusate Sodium [Colace CAP] 100 mg PO BID 01/21/18 01/24/22 Unknown History Ferrous Sulfate [Iron 325 MG] 325 mg PO DAILY 01/21/18 01/24/22 Unknown History fluPHENAZine decanoate (NF) 50 mg IM QWEEK 01/21/18 01/24/22 Unknown History [Prolixin Decanoate] Active Meds: Active Medications Amlodipine Besylate (Amlodipine 5 Mg Tab) 5 mg PO QDAY [facility] Last Admin: 01/27/22 11:00 Dose: Not Given Benztropine Mesylate (Benztropine 1 Mg Tab) 1 mg PO BID [facility] Last Admin: 01/27/22 21:18 Dose: Not Given Divalproex Sodium (Divalproex Dr 250 Mg Tab) 250 mg PO BID [facility] Last Admin: 01/27/22 21:18 Dose: Not Given Miscellaneous Medication (Fluphenazine Decanoate (Nf)) 50 mg IM QWEEK [facility] Olanzapine (Olanzapine 10 Mg Tab) 20 mg PO QDAY [facility] Last Admin: 01/27/22 11:00 Dose: Not Given Trazodone HCl (Trazodone 50 Mg Tab) 50 mg PO QHS [facility] Last Admin: 01/27/22 21:18 Dose: Not Given Ziprasidone (Ziprasidone Mesylate 20 Mg Vial) 20 mg IM Q4H PRN PRN Reason: Agitation Results - Results Labs/Vitals: Laboratory Last Values Hemoglobin A1c 5.5 % (4-6) 01/25/22 13:31 Triglycerides 63 mg/dL (2-149) 01/25/22 13:31 Cholesterol 165 mg/dL (50-199) 01/25/22 13:31 LDL Cholesterol Direct 88 mg/dL (50-130) 01/25/22 13:31 HDL Cholesterol 72 mg/dL (40-59) H 01/25/22 13:31 Cholesterol/HDL Ratio 2.29 % 01/25/22 13:31 Valproic Acid < 2.8 ug/mL (50-100) L 01/25/22 13:31 Last Vital Signs Temp 98.3 F 01/28/22 07:21 Pulse 94 H 01/28/22 07:21 Resp 20 01/28/22 07:21 BP 106/79 01/28/22 07:21 Pulse Ox 97 01/28/22 07:21
[2022-01-28] MEDS: amLODIPine 5 MG TAB PO SCH (09:29)
[2022-01-28] MEDS: DIVALPROEX DR 250 MG TAB PO SCH ×2 (09:30→21:17)
[2022-01-28] MEDS: BENZTROPINE 1 MG TAB PO SCH ×2 (09:31→21:17)
--- NOTE | 2022-01-28 14:01 | Progress Note ---
Assessment and Plan - Patient Problems (1) Vascular dementia with behavior disturbance Current Visit: Yes Status: Acute Plan to address problem: Verbal prompting, verbal redirection, benzodiazepine therapy as clinically indicated. (2) Cerebral atherosclerosis Current Visit: Yes Status: Acute Plan to address problem: Risk factor reduction, antiplatelet therapy as clinically indicated. (3) Nicotine dependence Current Visit: Yes Status: Acute Qualifiers: Nicotine product type: cigarettes Substance use status: uncomplicated Qualified Code(s): F17.210 - Nicotine dependence, cigarettes, uncomplicated Plan to address problem: Smoking cessation counseling, supportive care, behavior change counseling, +15 minutes. (4) Obesity (BMI 30.0-34.9) Current Visit: Yes Status: Acute Plan to address problem: Balanced diet, increase physical activity at discharge. (5) MDD (major depressive disorder) Current Visit: Yes Status: Acute Qualifiers: Major depression episode severity: unspecified Plan to address problem: Supportive care, continue medical management. (6) JOSH (generalized anxiety disorder) Current Visit: Yes Status: Acute Plan to address problem: Benzodiazepine therapy as clinically indicated, supportive care. (7) Schizophrenia Current Visit: No Status: Acute Qualifiers: Schizophrenia type: unspecified Qualified Code(s): F20.9 - Schizophrenia, unspecified Plan to address problem: Continue medical management. Cognitive behavioral therapy. (8) Advance care planning Current Visit: Yes Status: Acute Plan to address problem: Disease education conducted, care plan discussed, diagnoses discussed, prognosis discussed, patient is full code, +30 minutes. (9) Preventative health care Current Visit: Yes Status: Acute Plan to address problem: Patient counseled regarding smoking cessation and balanced diet. Behavior change counseling, +15 minutes. History Interval history: 72 YO Male with Vascular Dementia with Behavioral Disturbance, Cerebral Atherosclerosis, HTN, Schizophrenia, MDD, JOSH, Nicotine Dependence, Obesity admitted to [facility] unit for psychiatric stabilization. Consult placed by Dr. Deleon for medical management. Patient seen and evaluated in the recreation room. No reported nursing events. Patient denies pain. Patient is at baseline level of cognition and function at time of exam. Hospitalist Physical - Constitutional Vitals: Temp Pulse Resp BP Pulse Ox 98.3 F 94 H 20 106/79 97 01/28/22 07:21 01/28/22 09:29 01/28/22 07:21 01/28/22 09:29 01/28/22 07:21 General appearance: Present: no acute distress - EENT Eyes: Present: PERRL ENT: hearing decreased - Neck Neck: Present: supple - Respiratory Respiratory effort: normal Respiratory: bilateral: CTA - Cardiovascular Rhythm: regular Heart Sounds: Present: S1 & S2 - Extremities Extremities: no ischemia Peripheral Pulses: within normal limits - Abdominal General gastrointestinal: soft, non-tender, non-distended - Integumentary Integumentary: Present: clear, dry - Psychiatric Psychiatric: cooperative - Neurologic Neurologic: CNII-XII intact Results - Labs Labs: Laboratory Last Values Hemoglobin A1c 5.5 % (4-6) 01/25/22 13:31 Triglycerides 63 mg/dL (2-149) 01/25/22 13:31 Cholesterol 165 mg/dL (50-199) 01/25/22 13:31 LDL Cholesterol Direct 88 mg/dL (50-130) 01/25/22 13:31 HDL Cholesterol 72 mg/dL (40-59) H 01/25/22 13:31 Cholesterol/HDL Ratio 2.29 % 01/25/22 13:31 Valproic Acid < 2.8 ug/mL (50-100) L 01/25/22 13:31 [place]/IV: Voiding Method Toilet Active Medications - Current Medications Current Medications: Generic Name Dose Route Start Last Admin Trade Name Freq PRN Reason Stop Dose Admin Amlodipine Besylate 5 mg 01/25/22 10:00 01/28/22 09:29 Amlodipine 5 Mg Tab PO Not Given QDAY [facility] Benztropine Mesylate 1 mg 01/27/22 10:00 01/28/22 09:31 Benztropine 1 Mg Tab PO Not Given BID [facility] Divalproex Sodium 250 mg 01/25/22 11:00 01/28/22 09:[address] 250 Mg Tab PO Not Given BID [facility] Miscellaneous Medication 50 mg 01/26/22 09:00 Fluphenazine Decanoate (Nf) IM QWEEK [facility] Olanzapine 20 mg 01/25/22 10:00 01/28/22 09:30 Olanzapine 10 Mg Tab PO Not Given QDAY [facility] Trazodone HCl 50 mg 01/25/22 22:00 01/27/22 21:18 Trazodone 50 Mg Tab PO Not Given QHS [facility] Ziprasidone 20 mg 01/24/22 22:45 Ziprasidone Mesylate 20 Mg Vial IM Q4H PRN Agitation
--- NOTE | 2022-01-28 14:18 | Progress Note ---
Assessment and Plan - Patient Problems (1) Vascular dementia with behavior disturbance Current Visit: Yes Status: Acute Plan to address problem: Verbal prompting, verbal redirection, benzodiazepine therapy as clinically indicated. (2) Cerebral atherosclerosis Current Visit: Yes Status: Acute Plan to address problem: Risk factor reduction, antiplatelet therapy as clinically indicated. (3) Nicotine dependence Current Visit: Yes Status: Acute Qualifiers: Nicotine product type: cigarettes Substance use status: uncomplicated Qualified Code(s): F17.210 - Nicotine dependence, cigarettes, uncomplicated Plan to address problem: Smoking cessation counseling, supportive care, behavior change counseling, +15 minutes. (4) Obesity (BMI 30.0-34.9) Current Visit: Yes Status: Acute Plan to address problem: Balanced diet, increase physical activity at discharge. (5) MDD (major depressive disorder) Current Visit: Yes Status: Acute Qualifiers: Major depression episode severity: unspecified Plan to address problem: Supportive care, continue medical management. (6) JOSH (generalized anxiety disorder) Current Visit: Yes Status: Acute Plan to address problem: Benzodiazepine therapy as clinically indicated, supportive care. (7) Schizophrenia Current Visit: No Status: Acute Qualifiers: Schizophrenia type: unspecified Qualified Code(s): F20.9 - Schizophrenia, unspecified Plan to address problem: Continue medical management. Cognitive behavioral therapy. (8) Advance care planning Current Visit: Yes Status: Acute Plan to address problem: Disease education conducted, care plan discussed, diagnoses discussed, prognosis discussed, patient is full code, +30 minutes. (9) Preventative health care Current Visit: Yes Status: Acute Plan to address problem: Patient counseled regarding smoking cessation and balanced diet. Behavior change counseling, +15 minutes. History Interval history: 72 YO Male with Vascular Dementia with Behavioral Disturbance, Cerebral Atherosclerosis, HTN, Schizophrenia, MDD, JOSH, Nicotine Dependence, Obesity admitted to [facility] unit for psychiatric stabilization. Consult placed by Dr. Deleon for medical management. Patient seen and evaluated in the recreation room. No reported nursing events. Patient denies pain. Patient is at baseline level of cognition and function at time of exam. Hospitalist Physical - Constitutional Vitals: Temp Pulse Resp BP Pulse Ox 98.3 F 94 H 20 106/79 97 01/28/22 07:21 01/28/22 09:29 01/28/22 07:21 01/28/22 09:29 01/28/22 07:21 General appearance: Present: no acute distress - EENT Eyes: Present: PERRL ENT: hearing intact - Neck Neck: Present: supple - Respiratory Respiratory effort: normal Respiratory: bilateral: CTA - Cardiovascular Rhythm: regular Heart Sounds: Present: S1 & S2 - Extremities Extremities: no ischemia Peripheral Pulses: within normal limits - Abdominal General gastrointestinal: soft, non-tender, non-distended - Integumentary Integumentary: Present: clear, dry - Psychiatric Psychiatric: cooperative - Neurologic Neurologic: CNII-XII intact Results - Labs Labs: Laboratory Last Values Hemoglobin A1c 5.5 % (4-6) 01/25/22 13:31 Triglycerides 63 mg/dL (2-149) 01/25/22 13:31 Cholesterol 165 mg/dL (50-199) 01/25/22 13:31 LDL Cholesterol Direct 88 mg/dL (50-130) 01/25/22 13:31 HDL Cholesterol 72 mg/dL (40-59) H 01/25/22 13:31 Cholesterol/HDL Ratio 2.29 % 01/25/22 13:31 Valproic Acid < 2.8 ug/mL (50-100) L 01/25/22 13:31 Living[place]/IV: Voiding Method Toilet Active Medications - Current Medications Current Medications: Generic Name Dose Route Start Last Admin Trade Name Freq PRN Reason Stop Dose Admin Amlodipine Besylate 5 mg 01/25/22 10:00 01/28/22 09:29 Amlodipine 5 Mg Tab PO Not Given QDAY [facility] Benztropine Mesylate 1 mg 01/27/22 10:00 01/28/22 09:31 Benztropine 1 Mg Tab PO Not Given BID [facility] Divalproex Sodium 250 mg 01/25/22 11:00 01/28/22 09:[address] 250 Mg Tab PO Not Given BID [facility] Miscellaneous Medication 50 mg 01/26/22 09:00 Fluphenazine Decanoate (Nf) IM QWEEK [facility] Olanzapine 20 mg 01/25/22 10:00 01/28/22 09:30 Olanzapine 10 Mg Tab PO Not Given QDAY [facility] Trazodone HCl 50 mg 01/25/22 22:00 01/27/22 21:18 Trazodone 50 Mg Tab PO Not Given QHS [facility] Ziprasidone 20 mg 01/24/22 22:45 Ziprasidone Mesylate 20 Mg Vial IM Q4H PRN Agitation
[2022-01-28] MEDS: traZODone 50 MG TAB PO SCH (21:18)
--- NOTE | 2022-01-29 09:10 | Progress Note ---
Subjective Date of service: 01/29/22 Principal diagnosis: Schizophrenia Subjective Comment: 01/29: The patient was seen this morning. He was seen making hand gestures. He states he is doing well " I'm alive." He denies any current suicidal/homicidal ideation. 01/28:The patient was seen this morning. He walked passed this commercial loan underwriter not responding to questions. He states "If you give me a million dollars I'll tell you why I'm not talking, so have a great day." Per nurse, "pt is alert and oriented x3, calm but uncooperative with taking medication, unkempt, responses to internal stimuli, good appetite, no behavioral issue, but acts bizarre, rested well overnight, slept for approximately 8hrs." Spoke with patient's daughter Sony Duarte @ [phone] who states that [facility] @ [phone] will provide patient's Prolixin Dec 50mg IM weekly injections early next week. 01/27: The patient was seen this morning. The patient is calm and oriented x1; he gestures with his hand. He states sleep was good but states he watches what he eats " Zoroastrianism; I have hand cuffs, can you see it, I don't want to kill anybody." When asked what the voices was saying, he states " how is my son in- law and my daughter." The patient presents with disorganized thoughts and responding to internal stimuli. The patient is on Prolixin Dec 50mg IM weekly non formulary here replaced with Zyprexa 20mg po daily. Continued Cogentin 1mg po BID. 01/26: The patient was sitting on side of the bed. He does not acknowledge my presence. He ignores me as I'm speaking to him. REVIEW OF SYSTEMS Unable to obtain MENTAL STATUS EXAMINATION Unable to obtain Diagnoses: Schizophrenia Treatment Plan Patient admitted for inpatient psychiatric evaluation, medication adjustment and close monitoring The patient's behavior, mood, sleep and appetite will be closely monitored. Patient enrolled in individual and group therapeutic sessions and encouraged to attend. Patient provided with a safe and structured environment. Patient's physical health needs will be addressed by the Hospitalist. Hospitalist Consulted Labs including CBC, CMP, Lipid profile and Hemoglobin A1C levels ordered for baseline reference Social Assessment will be completed and the Production Utility Worker will work with patient and family to ensure a suitable and safe disposition Medication adjustment will be made as clinically indicated Depakote DR 250mg po BID Continued home Fluphenazine 50mg weekly Usual Wellness Faith/Preservation: - Start Trazodone 50 mg po QHS & 50 mg po QHS PRN between 10 PM & 2 AM for insomnia - Start Melatonin 5 mg po QHS to promote circadian rhythm The patient agreed on the treatment plan, understood the risk, benefit, alternative treatment, potential consequence of no treatment, and gave informed consent. Estimated days: 2 Post hospital care: primary care provider, psychiatric provider Case staffed with Dr. Mahoney Medications and Allergies Medications and Allergies Allergies Allergy/AdvReac Type Severity Reaction Status Date / Time haloperidol [From Haldol] Allergy Unknown Verified 01/22/22 16:42 mustard Allergy Unknown Verified 01/22/22 16:42 risperidone [From Risperdal] Allergy Unknown Verified 01/22/22 16:42 Home Medications Medication Instructions Recorded Confirmed Last Taken Type Benztropine [Cogentin] 1 mg PO BID 01/21/18 01/24/22 Unknown History Docusate Sodium [Colace CAP] 100 mg PO BID 01/21/18 01/24/22 Unknown History Ferrous Sulfate [Iron 325 MG] 325 mg PO DAILY 01/21/18 01/24/22 Unknown History fluPHENAZine decanoate (NF) 50 mg IM QWEEK 01/21/18 01/24/22 Unknown History [Prolixin Decanoate] Active Meds: Active Medications Amlodipine Besylate (Amlodipine 5 Mg Tab) 5 mg PO QDAY [facility] Last Admin: 01/28/22 09:29 Dose: Not Given Benztropine Mesylate (Benztropine 1 Mg Tab) 1 mg PO BID [facility] Last Admin: 01/28/22 21:17 Dose: Not Given Divalproex Sodium (Divalproex Dr 250 Mg Tab) 250 mg PO BID [facility] Last Admin: 01/28/22 21:17 Dose: Not Given Miscellaneous Medication (Fluphenazine Decanoate (Nf)) 50 mg IM QWEEK [facility] Olanzapine (Olanzapine 10 Mg Tab) 20 mg PO QDAY [facility] Last Admin: 01/28/22 09:30 Dose: Not Given Trazodone HCl (Trazodone 50 Mg Tab) 50 mg PO QHS [facility] Last Admin: 04/30/22 21:18 Dose: Not Given Ziprasidone (Ziprasidone Mesylate 20 Mg Vial) 20 mg IM Q4H PRN PRN Reason: Agitation Results - Results Labs/Vitals: Laboratory Last Values Hemoglobin A1c 5.5 % (4-6) 01/25/22 13:31 Triglycerides 63 mg/dL (2-149) 01/25/22 13:31 Cholesterol 165 mg/dL (50-199) 01/25/22 13:31 LDL Cholesterol Direct 88 mg/dL (50-130) 01/25/22 13:31 HDL Cholesterol 72 mg/dL (40-59) H 01/25/22 13:31 Cholesterol/HDL Ratio 2.29 % 01/25/22 13:31 Valproic Acid < 2.8 ug/mL (50-100) L 01/25/22 13:31 Last Vital Signs Temp 97.7 F 01/29/22 07:26 Pulse 75 01/29/22 07:26 Resp 16 01/29/22 07:26 BP 127/80 01/29/22 07:26 Pulse Ox 97 01/29/22 07:26
[2022-01-29] MEDS: amLODIPine 5 MG TAB PO SCH (10:45)
[2022-01-29] MEDS: DIVALPROEX DR 250 MG TAB PO SCH ×2 (10:46→21:20)
[2022-01-29] MEDS: BENZTROPINE 1 MG TAB PO SCH ×2 (10:46→21:20)
--- NOTE | 2022-01-29 20:04 | Progress Note ---
Assessment and Plan - Patient Problems (1) Vascular dementia with behavior disturbance Current Visit: Yes Status: Acute Plan to address problem: Verbal prompting, verbal redirection, benzodiazepine therapy as clinically indicated. (2) Cerebral atherosclerosis Current Visit: Yes Status: Acute Plan to address problem: Risk factor reduction, antiplatelet therapy as clinically indicated. (3) Nicotine dependence Current Visit: Yes Status: Acute Qualifiers: Nicotine product type: cigarettes Substance use status: uncomplicated Qualified Code(s): F17.210 - Nicotine dependence, cigarettes, uncomplicated Plan to address problem: Smoking cessation counseling, supportive care, behavior change counseling, +15 minutes. (4) Obesity (BMI 30.0-34.9) Current Visit: Yes Status: Acute Plan to address problem: Balanced diet, increase physical activity at discharge. (5) MDD (major depressive disorder) Current Visit: Yes Status: Acute Qualifiers: Major depression episode severity: unspecified Plan to address problem: Supportive care, continue medical management. (6) JOSH (generalized anxiety disorder) Current Visit: Yes Status: Acute Plan to address problem: Benzodiazepine therapy as clinically indicated, supportive care. (7) Schizophrenia Current Visit: No Status: Acute Qualifiers: Schizophrenia type: unspecified Qualified Code(s): F20.9 - Schizophrenia, unspecified Plan to address problem: Continue medical management. Cognitive behavioral therapy. (8) Advance care planning Current Visit: Yes Status: Acute Plan to address problem: Disease education conducted, care plan discussed, diagnoses discussed, prognosis discussed, patient is full code, +30 minutes. (9) Preventative health care Current Visit: Yes Status: Acute Plan to address problem: Patient counseled regarding smoking cessation and balanced diet. Behavior change counseling, +15 minutes. History Interval history: 72 YO Male with Vascular Dementia with Behavioral Disturbance, Cerebral Atherosclerosis, HTN, Schizophrenia, MDD, JOSH, Nicotine Dependence, Obesity admitted to [facility] unit for psychiatric stabilization. Consult placed by Dr. Deleon for medical management. Patient seen and evaluated in the recreation room. No reported nursing events. Patient denies pain. Patient is at baseline level of cognition and function at time of exam. Hospitalist Physical - Constitutional Vitals: Temp Pulse Resp BP Pulse Ox 97.7 F 75 16 127/80 97 01/29/22 07:26 01/29/22 07:26 01/29/22 07:26 01/29/22 07:26 01/29/22 07:26 General appearance: Present: no acute distress - EENT Eyes: Present: PERRL ENT: hearing decreased - Neck Neck: Present: supple - Respiratory Respiratory effort: normal Respiratory: bilateral: diminished - Cardiovascular Rhythm: regular Heart Sounds: Present: S1 & S2 - Extremities Extremities: no ischemia Peripheral Pulses: within normal limits - Abdominal General gastrointestinal: soft, non-tender, non-distended - Integumentary Integumentary: Present: clear, dry - Psychiatric Psychiatric: cooperative - Neurologic Neurologic: CNII-XII intact Results - Labs Labs: Laboratory Last Values Hemoglobin A1c 5.5 % (4-6) 01/25/22 13:31 Triglycerides 63 mg/dL (2-149) 01/25/22 13:31 Cholesterol 165 mg/dL (50-199) 01/25/22 13:31 LDL Cholesterol Direct 88 mg/dL (50-130) 01/25/22 13:31 HDL Cholesterol 72 mg/dL (40-59) H 01/25/22 13:31 Cholesterol/HDL Ratio 2.29 % 01/25/22 13:31 Valproic Acid < 2.8 ug/mL (50-100) L 01/25/22 13:31 [place]/IV: Voiding Method Toilet Active Medications - Current Medications Current Medications: Generic Name Dose Route Start Last Admin Trade Name Freq PRN Reason Stop Dose Admin Amlodipine Besylate 5 mg 01/25/22 10:00 01/29/22 10:45 Amlodipine 5 Mg Tab PO Not Given QDAY [facility] Benztropine Mesylate 1 mg 01/27/22 10:00 01/29/22 10:46 Benztropine 1 Mg Tab PO Not Given BID [facility] Divalproex Sodium 250 mg 01/25/22 11:00 01/29/22 10:[address] 250 Mg Tab PO Not Given BID [facility] Miscellaneous Medication 50 mg 01/26/22 09:00 Fluphenazine Decanoate (Nf) IM QWEEK [facility] Olanzapine 20 mg 01/25/22 10:00 01/29/22 10:46 Olanzapine 10 Mg Tab PO Not Given QDAY [facility] Trazodone HCl 50 mg 01/25/22 22:00 01/28/22 21:18 Trazodone 50 Mg Tab PO Not Given QHS [facility] Ziprasidone 20 mg 01/24/22 22:45 Ziprasidone Mesylate 20 Mg Vial IM Q4H PRN Agitation
[2022-01-29] MEDS: traZODone 50 MG TAB PO SCH (21:20)
--- NOTE | 2022-01-30 08:55 | Progress Note ---
Subjective Date of service: 01/30/22 Principal diagnosis: Schizophrenia Subjective Comment: 01/30: The patient was seen this morning. He is calm but continues to make hand gestures " you see handcuffs on my hands, I have not done anything, I just need my and children." The patient denies any current suicidal/homicidal ideation. 01/29: The patient was seen this morning. He was seen making hand gestures. He states he is doing well " I'm alive." He denies any current suicidal/homicidal ideation. 01/28:The patient was seen this morning. He walked passed this program writer not responding to questions. He states "If you give me a million dollars I'll tell you why I'm not talking, so have a great day." Per nurse, "pt is alert and oriented x3, calm but uncooperative with taking medication, unkempt, responses to internal stimuli, good appetite, no behavioral issue, but acts bizarre, rested well overnight, slept for approximately 8hrs." Spoke with patient's daughter Sony Duarte @ [phone] who states that [facility] @ [phone] will provide patient's Prolixin Dec 50mg IM weekly injections early next week. 01/27: The patient was seen this morning. The patient is calm and oriented x1; he gestures with his hand. He states sleep was good but states he watches what he eats " Mormon; I have hand cuffs, can you see it, I don't want to kill anybody." When asked what the voices was saying, he states " how is my son in- law and my daughter." The patient presents with disorganized thoughts and responding to internal stimuli. The patient is on Prolixin Dec 50mg IM weekly non formulary here replaced with Zyprexa 20mg po daily. Continued Cogentin 1mg po BID. 01/26: The patient was sitting on side of the bed. He does not acknowledge my presence. He ignores me as I'm speaking to him. REVIEW OF SYSTEMS Unable to obtain MENTAL STATUS EXAMINATION Unable to obtain Diagnoses: Schizophrenia Treatment Plan Patient admitted for inpatient psychiatric evaluation, medication adjustment and close monitoring The patient's behavior, mood, sleep and appetite will be closely monitored. Patient enrolled in individual and group therapeutic sessions and encouraged to attend. Patient provided with a safe and structured environment. Patient's physical health needs will be addressed by the Hospitalist. Hospitalist Consulted Labs including CBC, CMP, Lipid profile and Hemoglobin A1C levels ordered for baseline reference Social Assessment will be completed and the Hotel General Manager will work with patient and family to ensure a suitable and safe disposition Medication adjustment will be made as clinically indicated Depakote DR 250mg po BID Continued home Fluphenazine 50mg weekly Usual Wellness Latter-Day/Preservation: - Start Trazodone 50 mg po QHS & 50 mg po QHS PRN between 10 PM & 2 AM for insomnia - Start Melatonin 5 mg po QHS to promote circadian rhythm The patient agreed on the treatment plan, understood the risk, benefit, alternative treatment, potential consequence of no treatment, and gave informed consent. Estimated days: 2 Post hospital care: primary care provider, psychiatric provider Case staffed with Dr. Mahoney Medications and Allergies Medications and Allergies Allergies Allergy/AdvReac Type Severity Reaction Status Date / Time haloperidol [From Haldol] Allergy Unknown Verified 01/22/22 16:42 mustard Allergy Unknown Verified 01/22/22 16:42 risperidone [From Risperdal] Allergy Unknown Verified 01/22/22 16:42 Home Medications Medication Instructions Recorded Confirmed Last Taken Type Benztropine [Cogentin] 1 mg PO BID 01/21/18 01/24/22 Unknown History Docusate Sodium [Colace CAP] 100 mg PO BID 01/21/18 01/24/22 Unknown History Ferrous Sulfate [Iron 325 MG] 325 mg PO DAILY 01/21/18 01/24/22 Unknown History fluPHENAZine decanoate (NF) 50 mg IM QWEEK 01/21/18 01/24/22 Unknown History [Prolixin Decanoate] Active Meds: Active Medications Amlodipine Besylate (Amlodipine 5 Mg Tab) 5 mg PO QDAY [facility] Last Admin: 01/29/22 10:45 Dose: Not Given Benztropine Mesylate (Benztropine 1 Mg Tab) 1 mg PO BID [facility] Last Admin: 01/29/22 21:20 Dose: Not Given Divalproex Sodium (Divalproex Dr 250 Mg Tab) 250 mg PO BID [facility] Last Admin: 01/29/22 21:20 Dose: Not Given Miscellaneous Medication (Fluphenazine Decanoate (Nf)) 50 mg IM QWEEK [facility] Olanzapine (Olanzapine 10 Mg Tab) 20 mg PO QDAY [facility] Last Admin: 01/29/22 10:46 Dose: Not Given Trazodone HCl (Trazodone 50 Mg Tab) 50 mg PO QHS [facility] Last Admin: 01/29/22 21:20 Dose: Not Given Ziprasidone (Ziprasidone Mesylate 20 Mg Vial) 20 mg IM Q4H PRN PRN Reason: Agitation Results - Results Labs/Vitals: Laboratory Last Values Hemoglobin A1c 5.5 % (4-6) 01/25/22 13:31 Triglycerides 63 mg/dL (2-149) 01/25/22 13:31 Cholesterol 165 mg/dL (50-199) 01/25/22 13:31 LDL Cholesterol Direct 88 mg/dL (50-130) 01/25/22 13:31 HDL Cholesterol 72 mg/dL (40-59) H 01/25/22 13:31 Cholesterol/HDL Ratio 2.29 % 01/25/22 13:31 Valproic Acid < 2.8 ug/mL (50-100) L 01/25/22 13:31 Last Vital Signs Temp 98.4 F 01/29/22 20:00 Pulse 84 01/29/22 20:00 Resp 20 01/29/22 20:00 BP 152/90 01/29/22 20:00 Pulse Ox 99 01/29/22 20:00
[2022-01-30] MEDS: amLODIPine 5 MG TAB PO SCH (11:00)
[2022-01-30] MEDS: DIVALPROEX DR 250 MG TAB PO SCH ×2 (11:00→21:28)
[2022-01-30] MEDS: BENZTROPINE 1 MG TAB PO SCH ×2 (11:00→21:28)
[2022-01-30] MEDS: traZODone 50 MG TAB PO SCH (21:28)
--- NOTE | 2022-01-31 08:46 | Progress Note ---
Assessment and Plan Assessment and plan: (1) Vascular dementia with behavior disturbance Current Visit: Yes Status: Acute Plan to address problem: Verbal prompting, verbal redirection, benzodiazepine therapy as clinically indicated. (2) Cerebral atherosclerosis Current Visit: Yes Status: Acute Plan to address problem: Risk factor reduction, antiplatelet therapy as clinically indicated. (3) Nicotine dependence Current Visit: Yes Status: Acute Qualifiers: Nicotine product type: cigarettes Substance use status: uncomplicated Qualified Code(s): F17.210 - Nicotine dependence, cigarettes, uncomplicated Plan to address problem: Smoking cessation counseling, supportive care, behavior change counseling, +15 minutes. (4) Obesity (BMI 30.0-34.9) Current Visit: Yes Status: Acute Plan to address problem: Balanced diet, increase physical activity at discharge. (5) MDD (major depressive disorder) Current Visit: Yes Status: Acute Qualifiers: Major depression episode severity: unspecified Plan to address problem: Supportive care, continue medical management. (6) JOSH (generalized anxiety disorder) Current Visit: Yes Status: Acute Plan to address problem: Benzodiazepine therapy as clinically indicated, supportive care. (7) Schizophrenia Current Visit: No Status: Acute Qualifiers: Schizophrenia type: unspecified Qualified Code(s): F20.9 - Schizophrenia, unspecified Plan to address problem: Continue medical management. Cognitive behavioral therapy. (8) Advance care planning Current Visit: Yes Status: Acute Plan to address problem: Disease education conducted, care plan discussed, diagnoses discussed, prognosis discussed, patient is full code, +30 minutes. (9) Preventative health care Current Visit: Yes Status: Acute Plan to address problem: Patient counseled regarding smoking cessation and balanced diet. Behavior change counseling, +15 minutes. Disposition Plan: Continue medical management Total Time Spent with Patient (Minutes): 30 min History Interval history: No acute events overnight. Hospitalist Physical - Constitutional Vitals: Temp Pulse Resp BP Pulse Ox 98.5 F 84 18 127/78 98 01/30/22 22:00 01/30/22 22:00 01/30/22 22:00 01/30/22 22:00 01/30/22 22:00 General appearance: Present: no acute distress, well-nourished, obese - EENT Eyes: Present: PERRL, EOM intact ENT: hearing intact, clear oral mucosa, dentition normal - Neck Neck: Present: supple, normal ROM - Respiratory Respiratory effort: normal - Cardiovascular Rhythm: regular Heart Sounds: Present: S1 & S2 - Extremities Extremities: no ischemia, pulses intact, pulses symmetrical, No edema, normal temperature, normal color Peripheral Pulses: within normal limits - Abdominal General gastrointestinal: soft, non-tender, non-distended, normal bowel sounds - Integumentary Integumentary: Present: clear, warm, dry - Psychiatric Psychiatric: appropriate mood/affect, cooperative - Neurologic Neurologic: CNII-XII intact, moves all extremities - Allied Health Allied health notes reviewed: nursing Results - Labs Labs: Laboratory Last Values Hemoglobin A1c 5.5 % (4-6) 01/25/22 13:31 Triglycerides 63 mg/dL (2-149) 01/25/22 13:31 Cholesterol 165 mg/dL (50-199) 01/25/22 13:31 LDL Cholesterol Direct 88 mg/dL (50-130) 01/25/22 13:31 HDL Cholesterol 72 mg/dL (40-59) H 01/25/22 13:31 Cholesterol/HDL Ratio 2.29 % 01/25/22 13:31 Valproic Acid < 2.8 ug/mL (50-100) L 01/25/22 13:31 [place]/IV: Voiding Method Toilet Active Medications - Current Medications Current Medications: Generic Name Dose Route Start Last Admin Trade Name Freq PRN Reason Stop Dose Admin Amlodipine Besylate 5 mg 01/25/22 10:00 01/30/22 11:00 Amlodipine 5 Mg Tab PO Not Given QDAY [facility] Benztropine Mesylate 1 mg 01/27/22 10:00 01/30/22 21:28 Benztropine 1 Mg Tab PO Not Given BID [facility] Divalproex Sodium 250 mg 01/25/22 11:00 01/30/22 21:[address] 250 Mg Tab PO Not Given BID [facility] Miscellaneous Medication 50 mg 01/26/22 09:00 Fluphenazine Decanoate (Nf) IM QWEEK [facility] Olanzapine 20 mg 01/25/22 10:00 01/30/22 11:00 Olanzapine 10 Mg Tab PO Not Given QDAY [facility] Trazodone HCl 50 mg 01/25/22 22:00 01/30/22 21:28 Trazodone 50 Mg Tab PO Not Given QHS [facility] Ziprasidone 20 mg 01/24/22 22:45 Ziprasidone Mesylate 20 Mg Vial IM Q4H PRN Agitation
--- NOTE | 2022-01-31 09:20 | Progress Note ---
Subjective Date of service: 01/31/22 Principal diagnosis: Schizophrenia Subjective Comment: 01/31: The patient was seen this morning. he continues to talk about the hand cuffs, word salad. The patient denies any current suicidal/homicidal ideation and denies hallucinations. No changes made today. 01/30: The patient was seen this morning. He is calm but continues to make hand gestures " you see handcuffs on my hands, I have not done anything, I just need my and children." The patient denies any current suicidal/homicidal ideation. 01/29: The patient was seen this morning. He was seen making hand gestures. He states he is doing well " I'm alive." He denies any current suicidal/homicidal ideation. 01/28:The patient was seen this morning. He walked passed this typewriter assembler not responding to questions. He states "If you give me a million dollars I'll tell you why I'm not talking, so have a great day." Per nurse, "pt is alert and oriented x3, calm but uncooperative with taking medication, unkempt, responses to internal stimuli, good appetite, no behavioral issue, but acts bizarre, rested well overnight, slept for approximately 8hrs." Spoke with patient's daughter Sony Duarte @ [phone] who states that [facility]iny [facility] @ [phone] will provide patient's Prolixin Dec 50mg IM weekly injections early next week. 01/27: The patient was seen this morning. The patient is calm and oriented x1; he gestures with his hand. He states sleep was good but states he watches what he eats " Rastafari; I have hand cuffs, can you see it, I don't want to kill anybody." When asked what the voices was saying, he states " how is my son in- law and my daughter." The patient presents with disorganized thoughts and responding to internal stimuli. The patient is on Prolixin Dec 50mg IM weekly non formulary here replaced with Zyprexa 20mg po daily. Continued Cogentin 1mg po BID. 01/26: The patient was sitting on side of the bed. He does not acknowledge my presence. He ignores me as I'm speaking to him. REVIEW OF SYSTEMS Unable to obtain MENTAL STATUS EXAMINATION Unable to obtain Diagnoses: Schizophrenia Treatment Plan Patient admitted for inpatient psychiatric evaluation, medication adjustment and close monitoring The patient's behavior, mood, sleep and appetite will be closely monitored. Patient enrolled in individual and group therapeutic sessions and encouraged to attend. Patient provided with a safe and structured environment. Patient's physical health needs will be addressed by the Hospitalist. Hospitalist Consulted Labs including CBC, CMP, Lipid profile and Hemoglobin A1C levels ordered for baseline reference Social Assessment will be completed and the Vacuum Drier Operator will work with patient and family to ensure a suitable and safe disposition Medication adjustment will be made as clinically indicated Depakote DR 250mg po BID Continued home Fluphenazine 50mg weekly Usual Wellness Moravian/Preservation: - Start Trazodone 50 mg po QHS & 50 mg po QHS PRN between 10 PM & 2 AM for insomnia - Start Melatonin 5 mg po QHS to promote circadian rhythm The patient agreed on the treatment plan, understood the risk, benefit, alternative treatment, potential consequence of no treatment, and gave informed consent. Estimated days: 2 Post hospital care: primary care provider, psychiatric provider Case staffed with Dr. Mahoney Medications and Allergies Medications and Allergies Allergies Allergy/AdvReac Type Severity Reaction Status Date / Time haloperidol [From Haldol] Allergy Unknown Verified 01/22/22 16:42 mustard Allergy Unknown Verified 01/22/22 16:42 risperidone [From Risperdal] Allergy Unknown Verified 01/22/22 16:42 Home Medications Medication Instructions Recorded Confirmed Last Taken Type Benztropine [Cogentin] 1 mg PO BID 01/21/18 01/24/22 Unknown History Docusate Sodium [Colace CAP] 100 mg PO BID 01/21/18 01/24/22 Unknown History Ferrous Sulfate [Iron 325 MG] 325 mg PO DAILY 01/21/18 01/24/22 Unknown History fluPHENAZine decanoate (NF) 50 mg IM QWEEK 01/21/18 01/24/22 Unknown History [Prolixin Decanoate] Active Meds: Active Medications Amlodipine Besylate (Amlodipine 5 Mg Tab) 5 mg PO QDAY [facility] Last Admin: 01/30/22 11:00 Dose: Not Given Benztropine Mesylate (Benztropine 1 Mg Tab) 1 mg PO BID [facility] Last Admin: 01/30/22 21:28 Dose: Not Given Divalproex Sodium (Divalproex Dr 250 Mg Tab) 250 mg PO BID [facility] Last Admin: 01/30/22 21:28 Dose: Not Given Miscellaneous Medication (Fluphenazine Decanoate (Nf)) 50 mg IM QWEEK [facility] Olanzapine (Olanzapine 10 Mg Tab) 20 mg PO QDAY [facility] Last Admin: 01/30/22 11:00 Dose: Not Given Trazodone HCl (Trazodone 50 Mg Tab) 50 mg PO QHS [facility] Last Admin: 01/30/22 21:28 Dose: Not Given Ziprasidone (Ziprasidone Mesylate 20 Mg Vial) 20 mg IM Q4H PRN PRN Reason: Agitation Results - Results Labs/Vitals: Laboratory Last Values Hemoglobin A1c 5.5 % (4-6) 01/25/22 13:31 Triglycerides 63 mg/dL (2-149) 01/25/22 13:31 Cholesterol 165 mg/dL (50-199) 01/25/22 13:31 LDL Cholesterol Direct 88 mg/dL (50-130) 01/25/22 13:31 HDL Cholesterol 72 mg/dL (40-59) H 01/25/22 13:31 Cholesterol/HDL Ratio 2.29 % 01/25/22 13:31 Valproic Acid < 2.8 ug/mL (50-100) L 01/25/22 13:31 Last Vital Signs Temp 98.5 F 01/30/22 22:00 Pulse 84 01/30/22 22:00 Resp 18 01/30/22 22:00 BP 127/78 01/30/22 22:00 Pulse Ox 98 01/30/22 22:00
[2022-01-31] MEDS: DIVALPROEX DR 250 MG TAB PO SCH ×2 (11:00→21:05)
[2022-01-31] MEDS: amLODIPine 5 MG TAB PO SCH (11:00)
[2022-01-31] MEDS: BENZTROPINE 1 MG TAB PO SCH ×2 (11:00→21:05)
[2022-01-31] MEDS: traZODone 50 MG TAB PO SCH (21:05)
[2022-02-01] MEDS: amLODIPine 5 MG TAB PO SCH (09:41)
[2022-02-01] MEDS: DIVALPROEX DR 250 MG TAB PO SCH ×2 (09:41→21:09)
[2022-02-01] MEDS: BENZTROPINE 1 MG TAB PO SCH ×2 (09:41→21:08)
--- NOTE | 2022-02-01 10:37 | Progress Note ---
Subjective Date of service: 02/01/22 Principal diagnosis: Schizophrenia Subjective Comment: 02/01:The patient was seen this morning. He continues to present with disorganized thoughts. The patient denies any current suicidal/homicidal ideation and denies hallucinations. No changes made today. 01/31: The patient was seen this morning. He continues to talk about the hand cuffs, word salad. The patient denies any current suicidal/homicidal ideation and denies hallucinations. No changes made today. 01/30: The patient was seen this morning. He is calm but continues to make hand gestures " you see handcuffs on my hands, I have not done anything, I just need my and children." The patient denies any current suicidal/homicidal ideation. 01/29: The patient was seen this morning. He was seen making hand gestures. He states he is doing well " I'm alive." He denies any current suicidal/homicidal ideation. 01/28:The patient was seen this morning. He walked passed this senior copywriter not responding to questions. He states "If you give me a million dollars I'll tell you why I'm not talking, so have a great day." Per nurse, "pt is alert and oriented x3, calm but uncooperative with taking medication, unkempt, responses to internal stimuli, good appetite, no behavioral issue, but acts bizarre, rested well overnight, slept for approximately 8hrs." Spoke with patient's daughter Sony Duarte @ [phone] who states that [facility] @ [phone] will provide patient's Prolixin Dec 50mg IM weekly injections early next week. 01/27: The patient was seen this morning. The patient is calm and oriented x1; he gestures with his hand. He states sleep was good but states he watches what he eats " Moravian; I have hand cuffs, can you see it, I don't want to kill anybody." When asked what the voices was saying, he states " how is my son in- law and my daughter." The patient presents with disorganized thoughts and responding to internal stimuli. The patient is on Prolixin Dec 50mg IM weekly non formulary here replaced with Zyprexa 20mg po daily. Continued Cogentin 1mg po BID. 01/26: The patient was sitting on side of the bed. He does not acknowledge my presence. He ignores me as I'm speaking to him. REVIEW OF SYSTEMS Unable to obtain MENTAL STATUS EXAMINATION Unable to obtain Diagnoses: Schizophrenia Treatment Plan Patient admitted for inpatient psychiatric evaluation, medication adjustment and close monitoring The patient's behavior, mood, sleep and appetite will be closely monitored. Patient enrolled in individual and group therapeutic sessions and encouraged to attend. Patient provided with a safe and structured environment. Patient's physical health needs will be addressed by the Hospitalist. Hospitalist Consulted Labs including CBC, CMP, Lipid profile and Hemoglobin A1C levels ordered for baseline reference Social Assessment will be completed and the Ocular Care Technologist will work with patient and family to ensure a suitable and safe disposition Medication adjustment will be made as clinically indicated Depakote DR 250mg po BID Continued home Fluphenazine 50mg weekly Usual Wellness Sikhism/Preservation: - Start Trazodone 50 mg po QHS & 50 mg po QHS PRN between 10 PM & 2 AM for insomnia - Start Melatonin 5 mg po QHS to promote circadian rhythm The patient agreed on the treatment plan, understood the risk, benefit, alternative treatment, potential consequence of no treatment, and gave informed consent. Estimated days: 2 Post hospital care: primary care provider, psychiatric provider Case staffed with Dr. Mahoney Medications and Allergies Medications and Allergies Allergies Allergy/AdvReac Type Severity Reaction Status Date / Time haloperidol [From Haldol] Allergy Unknown Verified 01/22/22 16:42 mustard Allergy Unknown Verified 01/22/22 16:42 risperidone [From Risperdal] Allergy Unknown Verified 01/22/22 16:42 Home Medications Medication Instructions Recorded Confirmed Last Taken Type Benztropine [Cogentin] 1 mg PO BID 01/21/18 01/24/22 Unknown History Docusate Sodium [Colace CAP] 100 mg PO BID 01/21/18 01/24/22 Unknown History Ferrous Sulfate [Iron 325 MG] 325 mg PO DAILY 01/21/18 01/24/22 Unknown History fluPHENAZine decanoate (NF) 50 mg IM QWEEK 01/21/18 01/24/22 Unknown History [Prolixin Decanoate] Active Meds: Active Medications Amlodipine Besylate (Amlodipine 5 Mg Tab) 5 mg PO QDAY [facility] Last Admin: 02/01/22 09:41 Dose: Not Given Benztropine Mesylate (Benztropine 1 Mg Tab) 1 mg PO BID [facility] Last Admin: 02/01/22 09:41 Dose: Not Given Divalproex Sodium (Divalproex Dr 250 Mg Tab) 250 mg PO BID [facility] Last Admin: 02/01/22 09:41 Dose: Not Given Olanzapine (Olanzapine 10 Mg Tab) 20 mg PO QDAY [facility] Last Admin: 02/01/22 09:41 Dose: Not Given Trazodone HCl (Trazodone 50 Mg Tab) 50 mg PO QHS [facility] Last Admin: 01/31/22 21:05 Dose: Not Given Ziprasidone (Ziprasidone Mesylate 20 Mg Vial) 20 mg IM Q4H PRN PRN Reason: Agitation Results - Results Labs/Vitals: Laboratory Last Values Hemoglobin A1c 5.5 % (4-6) 01/25/22 13:31 Triglycerides 63 mg/dL (2-149) 01/25/22 13:31 Cholesterol 165 mg/dL (50-199) 01/25/22 13:31 LDL Cholesterol Direct 88 mg/dL (50-130) 01/25/22 13:31 HDL Cholesterol 72 mg/dL (40-59) H 01/25/22 13:31 Cholesterol/HDL Ratio 2.29 % 01/25/22 13:31 Valproic Acid < 2.8 ug/mL (50-100) L 01/25/22 13:31 Last Vital Signs Temp 97.4 F L 02/01/22 07:47 Pulse 78 02/01/22 07:47 Resp 16 02/01/22 07:47 BP 126/84 02/01/22 07:47 Pulse Ox 98 02/01/22 07:47
--- NOTE | 2022-02-01 14:45 | Discharge Summary ---
Providers - Providers Date of Admission: 01/24/22 22:30 Date of discharge: 02/02/22 Attending physician: CHRISTINE PORTER MD 01/24/22 21:35 Consult to Physician [CONS] Routine Comment: Consulting Provider: ROHIT PABLO Physician Instructions: Reason For Exam: new psych admit Primary care physician: AMARILIS GALE Hospitalization Disposition: 30 STILL A PATIENT Allergies/Adverse Reactions: Allergies haloperidol [From Haldol] Allergy (Verified 01/22/22 16:42) Unknown mustard Allergy (Verified 01/22/22 16:42) Unknown risperidone [From Risperdal] Allergy (Verified 01/22/22 16:42) Unknown Vital Signs: Last Vital Signs Temp 97.4 F L 02/01/22 07:47 Pulse 78 02/01/22 07:47 Resp 16 02/01/22 07:47 BP 126/84 02/01/22 07:47 Pulse Ox 98 02/01/22 07:47 Last Lab: Laboratory Last Values Hemoglobin A1c 5.5 % (4-6) 01/25/22 13:31 Triglycerides 63 mg/dL (2-149) 01/25/22 13:31 Cholesterol 165 mg/dL (50-199) 01/25/22 13:31 LDL Cholesterol Direct 88 mg/dL (50-130) 01/25/22 13:31 HDL Cholesterol 72 mg/dL (40-59) H 01/25/22 13:31 Cholesterol/HDL Ratio 2.29 % 01/25/22 13:31 Valproic Acid < 2.8 ug/mL (50-100) L 01/25/22 13:31 Core Measure Documentation - Palliative Care Palliative Care/ Comfort Measures: Not Applicable Exam - Constitutional Vitals: Temp Pulse Resp BP Pulse Ox 97.4 F L 78 16 126/84 98 02/01/22 07:47 02/01/22 07:47 02/01/22 07:47 02/01/22 07:47 02/01/22 07:47 Plan Follow up with: AMARILIS GALE MD [Primary Care Provider] - 7 Days
--- NOTE | 2022-02-01 15:08 | XRay Report ---
CHEST 1 VIEW 02/01/2022 2:43 PM INDICATION / CLINICAL INFORMATION: TB CHECK FOR GROUP PLACEMENT. COMPARISON: None available. FINDINGS: SUPPORT DEVICES: None. HEART / MEDIASTINUM: No significant abnormality. LUNGS / PLEURA: No significant pulmonary or pleural abnormality. No pneumothorax. No radiographic deandra dence of active tuberculosis. ADDITIONAL FINDINGS: No significant additional findings. IMPRESSION: 1. No acute findings. Signer Name: Jason Hanna MD Signed: 02/01/2022 2:59 PM Workstation Name: [employer]
--- NOTE | 2022-02-01 15:47 | Progress Note ---
Assessment and Plan Assessment and plan: (1) Vascular dementia with behavior disturbance Current Visit: Yes Status: Acute Plan to address problem: Verbal prompting, verbal redirection, benzodiazepine therapy as clinically indicated. (2) Cerebral atherosclerosis Current Visit: Yes Status: Acute Plan to address problem: Risk factor reduction, antiplatelet therapy as clinically indicated. (3) Nicotine dependence Current Visit: Yes Status: Acute Qualifiers: Nicotine product type: cigarettes Substance use status: uncomplicated Qualified Code(s): F17.210 - Nicotine dependence, cigarettes, uncomplicated Plan to address problem: Smoking cessation counseling, supportive care, behavior change counseling, +15 minutes. (4) Obesity (BMI 30.0-34.9) Current Visit: Yes Status: Acute Plan to address problem: Balanced diet, increase physical activity at discharge. (5) MDD (major depressive disorder) Current Visit: Yes Status: Acute Qualifiers: Major depression episode severity: unspecified Plan to address problem: Supportive care, continue medical management. (6) JOSH (generalized anxiety disorder) Current Visit: Yes Status: Acute Plan to address problem: Benzodiazepine therapy as clinically indicated, supportive care. (7) Schizophrenia Current Visit: No Status: Acute Qualifiers: Schizophrenia type: unspecified Qualified Code(s): F20.9 - Schizophrenia, unspecified Plan to address problem: Continue medical management. Cognitive behavioral therapy. (8) Advance care planning Current Visit: Yes Status: Acute Plan to address problem: Disease education conducted, care plan discussed, diagnoses discussed, prognosis discussed, patient is full code, +30 minutes. (9) Preventative health care Current Visit: Yes Status: Acute Plan to address problem: Patient counseled regarding smoking cessation and balanced diet. Behavior change counseling, +15 minutes. Thank you for this interesting consult. Thank you we will be signing off today as the patient is discharging home. Disposition Plan: Discharging home Total Time Spent with Patient (Minutes): 30 minutes History Interval history: No acute events overnight. Hospitalist Physical - Constitutional Vitals: Temp Pulse Resp BP Pulse Ox 97.4 F L 78 16 126/84 98 02/01/22 07:47 02/01/22 07:47 02/01/22 07:47 02/01/22 07:47 02/01/22 07:47 General appearance: Present: no acute distress, well-nourished, obese - EENT Eyes: Present: PERRL, EOM intact ENT: hearing intact, clear oral mucosa, dentition normal - Neck Neck: Present: supple, normal ROM - Respiratory Respiratory effort: normal Respiratory: bilateral: CTA - Cardiovascular Rhythm: regular Heart Sounds: Present: S1 & S2 - Extremities Extremities: no ischemia, pulses intact, pulses symmetrical, No edema, normal temperature, normal color Peripheral Pulses: within normal limits - Abdominal General gastrointestinal: soft, non-tender, non-distended, normal bowel sounds - Integumentary Integumentary: Present: clear, warm, dry - Psychiatric Psychiatric: appropriate mood/affect, cooperative - Neurologic Neurologic: CNII-XII intact - Allied Health Allied health notes reviewed: nursing Results - Labs Labs: Laboratory Last Values Hemoglobin A1c 5.5 % (4-6) 01/25/22 13:31 Triglycerides 63 mg/dL (2-149) 01/25/22 13:31 Cholesterol 165 mg/dL (50-199) 01/25/22 13:31 LDL Cholesterol Direct 88 mg/dL (50-130) 01/25/22 13:31 HDL Cholesterol 72 mg/dL (40-59) H 01/25/22 13:31 Cholesterol/HDL Ratio 2.29 % 01/25/22 13:31 Valproic Acid < 2.8 ug/mL (50-100) L 01/25/22 13:31 [place]/IV: Voiding Method Toilet Active Medications - Current Medications Current Medications: Generic Name Dose Route Start Last Admin Trade Name Freq PRN Reason Stop Dose Admin Amlodipine Besylate 5 mg 01/25/22 10:00 02/01/22 09:41 Amlodipine 5 Mg Tab PO Not Given QDAY [facility] Benztropine Mesylate 1 mg 01/27/22 10:00 02/01/22 09:41 Benztropine 1 Mg Tab PO Not Given BID [facility] Divalproex Sodium 250 mg 01/25/22 11:00 02/01/22 09:[address] 250 Mg Tab PO Not Given BID [facility] Olanzapine 20 mg 01/25/22 10:00 02/01/22 09:41 Olanzapine 10 Mg Tab PO Not Given QDAY [facility] Trazodone HCl 50 mg 01/25/22 22:00 01/31/22 21:05 Trazodone 50 Mg Tab PO Not Given QHS [facility] Ziprasidone 20 mg 01/24/22 22:45 Ziprasidone Mesylate 20 Mg Vial IM Q4H PRN Agitation Nutrition/Malnutrition Assess - Dietary Evaluation Nutrition/Malnutrition Findings: Nutrition Notes Start: 02/01/22 11:39 Freq: Status: Active Protocol: Document 02/01/22 11:39 ROSENDO (Rec: 02/01/22 11:46 ROSENDO [id number]) Nutrition Notes Need for Assessment generated from: LOS Initial or Follow up Assessment Other Pertinent Diagnosis Schizophrenia. Current Diet Regular Diet (since B 01/25). Labs/Tests 01/31: WNL, HbA1c 5.5. Pertinent Medications 01/31: Nutritionally unremarkable. 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 Weight Status Obese Subjective/Other Information RD consult for LOS assessment. Pt's PO intake of meals has been Good (100%), according to ADL notes. Pt is on Room Air, O2 saturation @ 98%, accoreding to Vital Signs report. Percent of energy/protein needs met: Prescribed Regular Diet provides for energy/protein needs (2,289 Kcal/89 g) during LOS. Burn Absent Trauma Absent GI Symptoms None Food Allergy Yes Skin Integrity/Comment Assessment WNL. Current % PO Good (75-100%) Minimum of two criteria No #1 Nutrition Diagnosis No nutrition diagnosis at this time Is patient on ventilator? No Is Patient Ambulatory and/or Out of Bed Yes REE-([place]. Jeor-ambulatory/OOB) [ 2273.895 [id number]] Kcal/Kg value to use for calculation 21 Approximate Energy Requirements Using 2096 kcal/Kg Calculation Used for Recommendations Kcal/kg Additional Notes Protein: 1-1.2 g/Kg AdjBW; 88- 106 g/day. Fluids: 1 ml/Kcal, or as per MD. Nutrition Intervention Change Diet Order: Continue Regular Diet. Revisit per MD consult or patient Sign Off request: Additional Comments Continue monitoring food tolerance, %PO intake of meals , and BM.
[2022-02-01] MEDS: traZODone 50 MG TAB PO SCH (21:09)
--- NOTE | 2022-02-02 09:05 | Progress Note ---
Subjective Date of service: 02/02/22 Principal diagnosis: Schizophrenia Subjective Comment: 02/02:The patient was seen this morning. The patient is calm. He continues to hand gesture of having hand cuffs. The patient denies any current suicidal/homicidal ideation and denies hallucinations. No changes made today. 02/01:The patient was seen this morning. He continues to present with disorganized thoughts. The patient denies any current suicidal/homicidal ideation and denies hallucinations. No changes made today. 01/31: The patient was seen this morning. He continues to talk about the hand cuffs, word salad. The patient denies any current suicidal/homicidal ideation and denies hallucinations. No changes made today. 01/30: The patient was seen this morning. He is calm but continues to make hand gestures " you see handcuffs on my hands, I have not done anything, I just need my and children." The patient denies any current suicidal/homicidal ideation. 01/29: The patient was seen this morning. He was seen making hand gestures. He states he is doing well " I'm alive." He denies any current suicidal/homicidal ideation. 01/28:The patient was seen this morning. He walked passed this inspector automatic typewriter not responding to questions. He states "If you give me a million dollars I'll tell you why I'm not talking, so have a great day." Per nurse, "pt is alert and oriented x3, calm but uncooperative with taking medication, unkempt, responses to internal stimuli, good appetite, no behavioral issue, but acts bizarre, rested well overnight, slept for approximately 8hrs." Spoke with patient's daughter Sony Duarte @ [phone] who states that [facility] @ [phone] will provide patient's Prolixin Dec 50mg IM weekly injections early next week. 01/27: The patient was seen this morning. The patient is calm and oriented x1; he gestures with his hand. He states sleep was good but states he watches what he eats " Alevism; I have hand cuffs, can you see it, I don't want to kill anybody." When asked what the voices was saying, he states " how is my son in- law and my daughter." The patient presents with disorganized thoughts and responding to internal stimuli. The patient is on Prolixin Dec 50mg IM weekly non formulary here replaced with Zyprexa 20mg po daily. Continued Cogentin 1mg po BID. 01/26: The patient was sitting on side of the bed. He does not acknowledge my presence. He ignores me as I'm speaking to him. REVIEW OF SYSTEMS Unable to obtain MENTAL STATUS EXAMINATION Unable to obtain Diagnoses: Schizophrenia Treatment Plan Patient admitted for inpatient psychiatric evaluation, medication adjustment and close monitoring The patient's behavior, mood, sleep and appetite will be closely monitored. Patient enrolled in individual and group therapeutic sessions and encouraged to attend. Patient provided with a safe and structured environment. Patient's physical health needs will be addressed by the Hospitalist. Hospitalist Consulted Labs including CBC, CMP, Lipid profile and Hemoglobin A1C levels ordered for baseline reference Social Assessment will be completed and the Senior Staff Psychologist will work with patient and family to ensure a suitable and safe disposition Medication adjustment will be made as clinically indicated Depakote DR 250mg po BID Continued home Fluphenazine 50mg weekly Usual Wellness Buddhist/Preservation: - Start Trazodone 50 mg po QHS & 50 mg po QHS PRN between 10 PM & 2 AM for insomnia - Start Melatonin 5 mg po QHS to promote circadian rhythm The patient agreed on the treatment plan, understood the risk, benefit, alte rnative treatment, potential consequence of no treatment, and gave informed consent. Estimated days: 2 Post hospital care: primary care provider, psychiatric provider Case staffed with Dr. Mahoney Medications and Allergies Medications and Allergies Allergies Allergy/AdvReac Type Severity Reaction Status Date / Time haloperidol [From Haldol] Allergy Unknown Verified 01/22/22 16:42 mustard Allergy Unknown Verified 01/22/22 16:42 risperidone [From Risperdal] Allergy Unknown Verified 01/22/22 16:42 Home Medications Medication Instructions Recorded Confirmed Last Taken Type Benztropine [Cogentin] 1 mg PO BID 01/21/18 01/24/22 Unknown History Docusate Sodium [Colace CAP] 100 mg PO BID 01/21/18 01/24/22 Unknown History Ferrous Sulfate [Iron 325 MG] 325 mg PO DAILY 01/21/18 01/24/22 Unknown History fluPHENAZine decanoate (NF) 50 mg IM QWEEK 01/21/18 01/24/22 Unknown History [Prolixin Decanoate] Active Meds: Active Medications Amlodipine Besylate (Amlodipine 5 Mg Tab) 5 mg PO QDAY [facility] Last Admin: 02/01/22 09:41 Dose: Not Given Benztropine Mesylate (Benztropine 1 Mg Tab) 1 mg PO BID [facility] Last Admin: 02/01/22 21:08 Dose: Not Given Divalproex Sodium (Divalproex Dr 250 Mg Tab) 250 mg PO BID [facility] Last Admin: 02/01/22 21:09 Dose: Not Given Olanzapine (Olanzapine 10 Mg Tab) 20 mg PO QDAY [facility] Last Admin: 02/01/22 09:41 Dose: Not Given Trazodone HCl (Trazodone 50 Mg Tab) 50 mg PO QHS [facility] Last Admin: 02/01/22 21:09 Dose: Not Given Ziprasidone (Ziprasidone Mesylate 20 Mg Vial) 20 mg IM Q4H PRN PRN Reason: Agitation Results - Results Labs/Vitals: Laboratory Last Values Hemoglobin A1c 5.5 % (4-6) 01/25/22 13:31 Triglycerides 63 mg/dL (2-149) 01/25/22 13:31 Cholesterol 165 mg/dL (50-199) 01/25/22 13:31 LDL Cholesterol Direct 88 mg/dL (50-130) 01/25/22 13:31 HDL Cholesterol 72 mg/dL (40-59) H 01/25/22 13:31 Cholesterol/HDL Ratio 2.29 % 01/25/22 13:31 Valproic Acid < 2.8 ug/mL (50-100) L 01/25/22 13:31 Last Vital Signs Temp 98.2 F 02/02/22 07:33 Pulse 77 02/02/22 07:33 Resp 16 02/02/22 07:33 BP 117/71 02/02/22 07:33 Pulse Ox 97 02/02/22 07:33
[2022-02-02] MEDS: DIVALPROEX DR 250 MG TAB PO SCH (09:24)
[2022-02-02] MEDS: BENZTROPINE 1 MG TAB PO SCH (09:24)
[2022-02-02] MEDS: amLODIPine 5 MG TAB PO SCH (09:24)
[2022-02-03] MEDS: BENZTROPINE 1 MG TAB PO SCH ×4 (01:23→22:30)
[2022-02-03] MEDS: traZODone 50 MG TAB PO SCH ×2 (01:24→22:31)
[2022-02-03] MEDS: DIVALPROEX DR 250 MG TAB PO SCH ×4 (01:24→22:30)
--- NOTE | 2022-02-03 08:36 | Progress Note ---
Subjective Date of service: 02/03/22 Principal diagnosis: Schizophrenia Subjective Comment: The patient was seen today. He is calm, but avoidant, and doesn't initially talk to me. He then says he doesn't want to talk right now. He denies SI/HI or hallucinations of any kind. 02/02:The patient was seen this morning. The patient is calm. He continues to hand gesture of having hand cuffs. The patient denies any current suicidal/homicidal ideation and denies hallucinations. No changes made today. 02/01:The patient was seen this morning. He continues to present with disorganized thoughts. The patient denies any current suicidal/homicidal rigoberto ation and denies hallucinations. No changes made today. 01/31: The patient was seen this morning. He continues to talk about the hand cuffs, word salad. The patient denies any current suicidal/homicidal ideation and denies hallucinations. No changes made today. 01/30: The patient was seen this morning. He is calm but continues to make hand gestures " you see handcuffs on my hands, I have not done anything, I just need my and children." The patient denies any current suicidal/homicidal ideation. 01/29: The patient was seen this morning. He was seen making hand gestures. He states he is doing well " I'm alive." He denies any current suicidal/homicidal ideation. 01/28:The patient was seen this morning. He walked passed this check writer not responding to questions. He states "If you give me a million dollars I'll tell you why I'm not talking, so have a great day." Per nurse, "pt is alert and oriented x3, calm but uncooperative with taking medication, unkempt, responses to internal stimuli, good appetite, no behavioral issue, but acts bizarre, rested well overnight, slept for approximately 8hrs." Spoke with patient's daughter Sony Duarte @ [phone] who states that [facility] @ [phone] will provide patient's Prolixin Dec 50mg IM weekly injections early next week. 01/27: The patient was seen this morning. The patient is calm and oriented x1; he gestures with his hand. He states sleep was good but states he watches what he eats " Sabianist; I have hand cuffs, can you see it, I don't want to kill anybody." When asked what the voices was saying, he states " how is my son in- law and my daughter." The patient presents with disorganized thoughts and responding to internal stimuli. The patient is on Prolixin Dec 50mg IM weekly non formulary here replaced with Zyprexa 20mg po daily. Continued Cogentin 1mg po BID. 01/26: The patient was sitting on side of the bed. He does not acknowledge my presence. He ignores me as I'm speaking to him. REVIEW OF SYSTEMS Unable to obtain MENTAL STATUS EXAMINATION Unable to obtain Diagnoses: Schizophrenia Treatment Plan Patient admitted for inpatient psychiatric evaluation, medication adjustment and close monitoring The patient's behavior, mood, sleep and appetite will be closely monitored. Patient enrolled in individual and group therapeutic sessions and encouraged to attend. Patient provided with a safe and structured environment. Patient's physical health needs will be addressed by the Hospitalist. Hospitalist Consulted Labs including CBC, CMP, Lipid profile and Hemoglobin A1C levels ordered for baseline reference Social Assessment will be completed and the Sealer Operator will work with patient and family to ensure a suitable and safe disposition Medication adjustment will be made as clinically indicated Continue Depakote DR 250mg po BID Continued home Fluphenazine 50mg weekly Continue Olanzapine 20mg po daily Usual Wellness Mu-Ism/Preservation: - Start Trazodone 50 mg po QHS & 50 mg po QHS PRN between 10 PM & 2 AM for insomnia - Start Melatonin 5 mg po QHS to promote circadian rhythm The patient agreed on the treatment plan, understood the risk, benefit, alternative treatment, potential consequence of no treatment, and gave informed consent. Estimated days: 2 Post hospital care: primary care provider, psychiatric provider Case staffed with Dr. Mahoney Medications and Allergies Allergies Allergy/AdvReac Type Severity Reaction Status Date / Time haloperidol [From Haldol] Allergy Unknown Verified 01/22/22 16:42 mustard Allergy Unknown Verified 01/22/22 16:42 risperidone [From Risperdal] Allergy Unknown Verified 01/22/22 16:42 Home Medications Medication Instructions Recorded Confirmed Last Taken Type Benztropine [Cogentin] 1 mg PO BID 01/21/18 01/24/22 Unknown History Docusate Sodium [Colace CAP] 100 mg PO BID 01/21/18 01/24/22 Unknown History Ferrous Sulfate [Iron 325 MG] 325 mg PO DAILY 01/21/18 01/24/22 Unknown History fluPHENAZine decanoate (NF) 50 mg IM QWEEK 01/21/18 01/24/22 Unknown History [Prolixin Decanoate (Nf)] Divalproex Dr [Depakote Dr] 250 mg PO BID #60 tablet 02/03/22 Unknown Rx OLANzapine [Zyprexa] 20 mg PO QDAY #60 tablet 02/03/22 Unknown Rx traZODone [Desyrel] 50 mg PO QHS #30 tablet 02/03/22 Unknown Rx Active Meds: Active Medications Amlodipine Besylate (Amlodipine 5 Mg Tab) 5 mg PO QDAY [facility] Last Admin: 02/02/22 09:24 Dose: Not Given Benztropine Mesylate (Benztropine 1 Mg Tab) 1 mg PO BID [facility] Last Admin: 02/03/22 01:23 Dose: Not Given Divalproex Sodium (Divalproex Dr 250 Mg Tab) 250 mg PO BID [facility] Last Admin: 02/03/22 01:24 Dose: Not Given Olanzapine (Olanzapine 10 Mg Tab) 20 mg PO QDAY [facility] Last Admin: 02/02/22 09:24 Dose: Not Given Trazodone HCl (Trazodone 50 Mg Tab) 50 mg PO QHS [facility] Last Admin: 02/03/22 01:24 Dose: Not Given Ziprasidone (Ziprasidone Mesylate 20 Mg Vial) 20 mg IM Q4H PRN PRN Reason: Agitation Results - Results Labs/Vitals: Laboratory Last Values Hemoglobin A1c 5.5 % (4-6) 01/25/22 13:31 Triglycerides 63 mg/dL (2-149) 01/25/22 13:31 Cholesterol 165 mg/dL (50-199) 01/25/22 13:31 LDL Cholesterol Direct 88 mg/dL (50-130) 01/25/22 13:31 HDL Cholesterol 72 mg/dL (40-59) H 01/25/22 13:31 Cholesterol/HDL Ratio 2.29 % 01/25/22 13:31 Valproic Acid < 2.8 ug/mL (50-100) L 01/25/22 13:31 SARS-CoV-2 (PCR) Negative (Negative) 02/01/22 14:42 Last Vital Signs Temp 98.5 F 02/02/22 19:35 Pulse 98 H 02/02/22 19:35 Resp 20 02/02/22 19:35 BP 160/95 02/02/22 19:35 Pulse Ox 96 02/02/22 19:35
[2022-02-03] MEDS: amLODIPine 5 MG TAB PO SCH (10:28)
--- NOTE | 2022-02-03 13:12 | Progress Note ---
Assessment and Plan Assessment and plan: (1) Vascular dementia with behavior disturbance Current Visit: Yes Status: Acute Plan to address problem: Verbal prompting, verbal redirection, benzodiazepine therapy as clinically indicated. (2) Cerebral atherosclerosis Current Visit: Yes Status: Acute Plan to address problem: Risk factor reduction, antiplatelet therapy as clinically indicated. (3) Nicotine dependence Current Visit: Yes Status: Acute Qualifiers: Nicotine product type: cigarettes Substance use status: uncomplicated Qualified Code(s): F17.210 - Nicotine dependence, cigarettes, uncomplicated Plan to address problem: Smoking cessation counseling, supportive care, behavior change counseling, +15 minutes. (4) Obesity (BMI 30.0-34.9) Current Visit: Yes Status: Acute Plan to address problem: Balanced diet, increase physical activity at discharge. (5) MDD (major depressive disorder) Current Visit: Yes Status: Acute Qualifiers: Major depression episode severity: unspecified Plan to address problem: Supportive care, continue medical management. (6) JOSH (generalized anxiety disorder) Current Visit: Yes Status: Acute Plan to address problem: Benzodiazepine therapy as clinically indicated, supportive care. (7) Schizophrenia Current Visit: No Status: Acute Qualifiers: Schizophrenia type: unspecified Qualified Code(s): F20.9 - Schizophrenia, unspecified Plan to address problem: Continue medical management. Cognitive behavioral therapy. (8) Advance care planning Current Visit: Yes Status: Acute Plan to address problem: Disease education conducted, care plan discussed, diagnoses discussed, prognosis discussed, patient is full code, +30 minutes. (9) Preventative health care Current Visit: Yes Status: Acute Plan to address problem: Patient counseled regarding smoking cessation and balanced diet. Behavior change counseling, +15 minutes. Disposition Plan: Continue medical management Total Time Spent with Patient (Minutes): 30 minutes History Interval history: No acute events overnight. Hospitalist Physical - Constitutional Vitals: Temp Pulse Resp BP Pulse Ox 98.3 F 84 16 108/60 98 02/03/22 09:13 02/03/22 09:13 02/03/22 09:13 02/03/22 09:13 02/03/22 09:13 General appearance: Present: no acute distress, well-nourished, obese - EENT Eyes: Present: PERRL, EOM intact ENT: hearing intact, clear oral mucosa, dentition normal - Neck Neck: Present: supple, normal ROM - Respiratory Respiratory effort: normal - Cardiovascular Rhythm: regular Heart Sounds: Present: S1 & S2 - Extremities Extremities: no ischemia, pulses intact, pulses symmetrical, No edema, normal temperature, normal color Peripheral Pulses: within normal limits - Abdominal General gastrointestinal: soft, non-tender, non-distended, normal bowel sounds - Integumentary Integumentary: Present: clear, warm, dry - Psychiatric Psychiatric: appropriate mood/affect, cooperative - Neurologic Neurologic: CNII-XII intact - Allied Health Allied health notes reviewed: nursing Results - Labs Labs: Laboratory Last Values Hemoglobin A1c 5.5 % (4-6) 01/25/22 13:31 Triglycerides 63 mg/dL (2-149) 01/25/22 13:31 Cholesterol 165 mg/dL (50-199) 01/25/22 13:31 LDL Cholesterol Direct 88 mg/dL (50-130) 01/25/22 13:31 HDL Cholesterol 72 mg/dL (40-59) H 01/25/22 13:31 Cholesterol/HDL Ratio 2.29 % 01/25/22 13:31 Valproic Acid < 2.8 ug/mL (50-100) L 01/25/22 13:31 SARS-CoV-2 (PCR) Negative (Negative) 02/01/22 14:42 [place]/IV: Voiding Method Toilet Active Medications - Current Medications Current Medications: Generic Name Dose Route Start Last Admin Trade Name Freq PRN Reason Stop Dose Admin Amlodipine Besylate 5 mg 01/25/22 10:00 02/03/22 10:28 Amlodipine 5 Mg Tab PO Not Given QDAY [facility] Benztropine Mesylate 1 mg 01/27/22 10:00 02/03/22 10:28 Benztropine 1 Mg Tab PO Not Given BID ORLY Divalproex Sodium 250 mg 01/25/22 11:00 02/03/22 10:[address] 250 Mg Tab PO Not Given BID ORLY Olanzapine 20 mg 01/25/22 10:00 02/03/22 10:29 Olanzapine 10 Mg Tab PO Not Given QDAY ORLY Trazodone HCl 50 mg 01/25/22 22:00 02/03/22 01:24 Trazodone 50 Mg Tab PO Not Given QHS ORLY Ziprasidone 20 mg 01/24/22 22:45 Ziprasidone Mesylate 20 Mg Vial IM Q4H PRN Agitation Nutrition/Malnutrition Assess - Dietary Evaluation Nutrition/Malnutrition Findings: Nutrition Notes Start: 02/01/22 11:39 Freq: Status: Active Protocol: Document 02/01/22 11:39 ROSENDO (Rec: 02/01/22 11:46 ROSENDO [id number]) Nutrition Notes Need for Assessment generated from: LOS Initial or Follow up Assessment Other Pertinent Diagnosis Schizophrenia. Current Diet Regular Diet (since B 01/25). Labs/Tests 01/31: WNL, HbA1c 5.5. Pertinent Medications 01/31: Nutritionally unremarkable. 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 Weight Status Obese Subjective/Other Information RD consult for LOS assessment. Pt's PO intake of meals has been Good (100%), according to ADL notes. Pt is on Room Air, O2 saturation @ 98%, accoreding to Vital Signs report. Percent of energy/protein needs met: Prescribed Regular Diet provides for energy/protein needs (2,289 Kcal/89 g) during LOS. Burn Absent Trauma Absent GI Symptoms None Food Allergy Yes Skin Integrity/Comment Assessment WNL. Current % PO Good (75-100%) Minimum of two criteria No #1 Nutrition Diagnosis No nutrition diagnosis at this time Is patient on ventilator? No Is Patient Ambulatory and/or Out of Bed Yes REE-([facility]-ambulatory/OOB) [ 2273.895 [id number]] Kcal/Kg value to use for calculation 21 Approximate Energy Requirements Using 2096 kcal/Kg Calculation Used for Recommendations Kcal/kg Additional Notes Protein: 1-1.2 g/Kg AdjBW; 88- 106 g/day. Fluids: 1 ml/Kcal, or as per MD. Nutrition Intervention Change Diet Order: Continue Regular Diet. Revisit per MD consult or patient Sign Off request: Additional Comments Continue monitoring food tolerance, %PO intake of meals , and BM.
[2022-02-03] MEDS ORDERED: WATER FOR INJ Sterile (PF) 10 ML ONE (20:11)
[2022-02-03 20:49] VITALS: BP 115/65
== END 2022-02-03 22:25 | DRG 885 ==
LOC: UNDOADMIN 15:26 → 3A 15:26 → 5A 01-24 22:30
PROVIDERS: ADMIT Psychiatry & Neurology Psychiatry; ATTEND Psychiatry & Neurology Psychiatry
DX: F20.9 Schizophrenia, unspecified (principal); F01.51 Vascular dementia, unspecified severity, with behavioral disturbance; F32.9 Major depressive disorder, single episode, unspecified; F41.1 Generalized anxiety disorder; I67.2 Cerebral atherosclerosis; Z20.822 Contact with and (suspected) exposure to COVID-19; I10 Essential (primary) hypertension; E66.9 Obesity, unspecified; F17.210 Nicotine dependence, cigarettes, uncomplicated; Z68.31 Body mass index [BMI] 31.0-31.9, adult; Z71.3 Dietary counseling and surveillance; Z71.6 Tobacco abuse counseling; Z88.8 Allergy status to other drugs, medicaments and biological substances
CPT/HCPCS: 36415; 71045; 80048; 80061; 80164; 80178; 80307; 80320; 81001; 83036; 85025; 96372; 99283; 99285; G0378; G0480; J1200; J3486; U0003